=== PATIENT | male | born 1935 | race Caucasian/White ===

== ENCOUNTER 2019-12-30 12:58 | Inpatient (IN) | payer MEDICARE, BC ==
--- NOTE | 2019-12-30 13:52 | ED ---
Respiratory - HPI Summary HPI Summary: Patient is an 84 year-old male presenting to [facility] with a chief complaint of shortness of breath and productive cough lasting for about a week and a half. He reports that he was diagnosed with pneumonia a week ago with placement on 10 day course of Levaquin, which he is on the seventh day of taking. He was seen at his PCPs office today for shortness of breath and persistent cough with green sputum, where he was found to be slightly hypoxic at 88% on room air. Patient denies any fever, chills, erythema of eyes, sore throat, chest pain, abdominal pain, nausea, vomiting, dysuria, hematuria, myalgia, edema, rash, or dizziness. No recent travel history or known exposures. He is not on at-home O2. He is not currently in pain. Past medical history significant for diabetes, heart transplant, CHF, CAD, hypertension, hyperlipidemia, TIA, immunosuppressants. Nonsmoker, daily alcohol use, no substance use. Medications reviewed. Allergies noted. - History of Current Complaint Chief Complaint: EDUpperRespComplaint Stated Complaint: SOB/LOW OXYGEN PER PT Hx Obtained From: Patient Onset/Duration: Gradual Onset, Lasting Days, Still Present Timing: Constant Initial Severity: Mild Current Severity: Mild Pain Intensity: 0 Character: Cough (Productive) Sputum Color: Green Aggravating Factor(s): Nothing Alleviating Factor(s): Nothing - day 7 of Levaquin without relief Associated Signs and Symptoms: SOB, URI - Allergy/Home Medications Allergies/Adverse Reactions: Allergies Allergy/AdvReac Type Severity Reaction Status Date / Time heparin Allergy Unknown Verified 12/30/19 13:05 Reaction Details Iodinated Contrast Media Allergy Unknown Verified 12/30/19 13:05 Reaction Details zolpidem [From Ambien] Allergy Hallucinati Verified 12/30/19 13:05 ons Home Medications: Home Medications Atorvastatin* [Lipitor*] 5 mg PO MOWEFRSA 10/12/13 [History Confirmed 12/30/19] Calcium Citrate/Vitamin D3 [Citracal/Vitamin D] 2 tab PO BID 10/12/13 [History Confirmed 12/30/19] Magnesium Oxide TAB* [MagOx 400 TAB*] 800 mg PO BID 10/12/13 [History Confirmed 12/30/19] Multivitamins/Minerals TAB* [Thera M Plus TAB*] 1 tab PO DAILY 10/12/13 [ History Confirmed 12/30/19] Mycophenolate Mofetil CAP(*) [Cellcept CAP(*)] 500 mg PO BID 10/12/13 [History Confirmed 12/30/19] Tacrolimus CAP(*) [Prograf CAP(*)] 2 mg PO QAM 10/12/13 [History Confirmed 12/29] amLODIPine TAB* [Norvasc TAB*] 10 mg PO DAILY 10/12/13 [History Confirmed ] Dipyridamole/Aspirin 200/25* [Aggrenox 25/200*] 1 cap.er PO BID 01/26/14 [ History Confirmed 12/30/19] Insulin NPH Hum/Reg Insulin Hm [Novolin 70-30 Flexpen 3 ml x 5 Pens] 58 units SUBCUT DAILY 12/30/19 [History Confirmed 12/30/19] Levofloxacin TAB* [Levaquin TAB*] 500 mg PO DAILY 12/30/19 [History Confirmed ] Metoprolol Succinate XL TAB* [Toprol XL TAB*] 25 mg PO DAILY 12/30/19 [History Confirmed 12/30/19] Sertraline* [Zoloft*] 25 mg PO DAILY 12/30/19 [History Confirmed 12/30/19] Tacrolimus CAP(*) [Prograf CAP(*)] 1.5 mg PO QPM 12/30/19 [History Confirmed 10/08] PMH/Surg Hx/FS Hx/Imm Hx Endocrine/Hematology History: Reports: Hx Diabetes Cardiovascular History: Reports: Hx Congestive Heart Failure, Hx Coronary Artery Disease, Hx Hypercholesterolemia, Hx Hypertension, Other Cardiovascular Problems/Disorders - :Heart transplant Denies: Hx Pacemaker/ICD History: Denies: Hx Renal Disease Musculoskeletal History: Reports: Hx Arthritis Comment Only: Other Musculoskeletal History - Left knee needs replacement. Sensory History: Reports: Hx Contacts or Glasses Denies: Hx Hearing Aid Opthamlomology History: Reports: Hx Contacts or Glasses Neurological History: Reports: Hx Transient Ischemic Attacks (TIA), Other Neuro Impairments/Disorders - TIA-09/2013- STATES NO RESIDUAL Psychiatric History: Denies: Hx Panic Disorder - Surgical History Surgical History: Yes Surgery Procedure, Year, and Place: open heart surgery - heart transplant 2003 ( has had prev mri in 2011);. hernia 90's;. left knee 's;. gallbladder removed ; Hx Anesthesia Reactions: No Infectious Disease History: No Infectious Disease History: Denies: Traveled Outside the [place] in Last 30 Days - Family History Known Family History: Positive: Cardiac Disease - Social History Alcohol Use: Daily Alcohol Amount: 8 OUNCE [employer] W[employer] [place]ILE Hx Substance Use: No Substance Use Type: Reports: None Hx Tobacco Use: No Smoking Status (MU): Never Smoked Tobacco Amount Used/How Often: 1/2 PPD X 40 YEARS Review of Systems Negative: Fever, Chills Negative: Erythema Negative: Sore Throat Negative: Chest Pain Positive: Shortness Of Breath, Cough Negative: Abdominal Pain, Vomiting, Nausea Negative: dysuria, hematuria Negative: Myalgia, Edema Negative: Rash Neurological/Mental Status: Other - Negative: dizziness All Other Systems Reviewed And Are Negative: Yes Physical Exam - Summary Physical Exam Summary: Constitutional: Well-developed, Well-nourished, Alert. (-) Distressed Skin: Warm, Dry HENT: Normocephalic; Atraumatic Eyes: Conjunctiva normal Neck: Musculoskeletal ROM normal neck. (-) JVD, (-) Stridor, (-) Tracheal deviation Cardio: Rhythm regular, rate normal, Heart sounds normal; Intact distal pulses; The pedal pulses are 2+ and symmetric. Radial pulses are 2+ and symmetric. (-) Murmur Pulmonary/Chest wall: Effort normal. (-) Respiratory distress, (-) Wheezes, (-) Rales, (+) Rhonchi in the lower lung [place] Abd: Soft, (-) tenderness, (-) Distension, (-) Guarding, (-) Rebound Musculoskeletal: (-) Edema Lymph: (-) Cervical adenopathy Neuro: Alert, Oriented x3 Psych: Mood and affect Normal Triage Information Reviewed: Yes Vital Signs On Initial Exam: Initial Vitals Temp Pulse Resp BP Pulse Ox 98.7 F 113 20 180/100 88 12/30/19 13:01 12/30/19 13:01 12/30/19 13:01 12/30/19 13:01 12/30/19 13:01 Vital Signs Reviewed: Yes Procedures - Sedation Patient Received Moderate/Deep Sedation with Procedure: No Diagnostics - Vital Signs Vital Signs Temp Pulse Resp BP Pulse Ox 03/12/20 13:01 98.7 F 113 20 180/100 88 - Laboratory Result Diagrams: 12/30/19 14:26 12/30/19 14:26 Lab Statement: Any lab studies that have been ordered have been reviewed, and results considered in the medical decision making process. - Radiology CXR Radiology Interpretation Completed By: Radiologist Summary of Radiographic Findings: Impression: Persistent right upper lobe and right lower lobe pneumonia without significant change since December 23, 2019. ED physician has reviewed this report. - EKG 1435 Cardiac Rate: Tachycardia - 108 BPM EKG Rhythm: Sinus Tachycardia Summary of EKG Findings: An EKG at 1435 reveals sinus tachycardia at 108 BPM. No STEMI. ED physician has reviewed and interpreted this EKG. Re-Evaluation - Re-Evaluation First Eval Re-Evaluation Time: 14:30 Comment: Updated patient on test results Disposition - Course Course Of Treatment: Patient is an 84 year-old male presenting with persistent productive cough with green sputum and shortness of breath over the last week and half with diagnosed pneumonia last week despite treatment with course of Levaquin (seventh day out of ten). Patient found to be hypoxic at PCP's office today. Patient denies fevers, chills, chest pain, or myalgia. No recent travel history or known exposures. Past medical history significant for diabetes, heart transplant, CHF, CAD, hypertension, hyperlipidemia, TIA, immunosuppressants. Physical exam significant for rhonchi in the lower lung [place]. IV access obtained. Patient received fluids, Azithromycin, and Ceftriaxone. Blood work with abnormalities of absolute lymphocytes 0.8, INR 1.2 , BUN 44, creatinine 2.42, glucose 134, CRP 128.71. Influenza A and B are negative. EKG shows sinus tachycardia at 108 BPM, non-diagnostic for STEMI. Chest XR reveals right upper and lower lobe pneumonia with change from 2019. Patient has failed outpatient therapy with Levaquin. I discussed the patients case with Dr. Nix, who accepts the patient for admission. All results discussed with patient. Patient agreeable with admission plan. 35 MINUTES CRITICAL CARE TIME. - Diagnoses Provider Diagnoses: Sepsis, Community acquired pneumonia, Hypoxia - Physician Notifications Discussed Care Of Patient With: Deb Nix - hospitalist Time Discussed With Above Provider: 16:00 Instructed by Provider To: Other - I discussed the patients case with Dr. Nix , who will evaluate the patient for admission. She accepts the patient. - Critical Care Time Critical Care Time: 30-74 min - 35 minutes Discharge ED - Sign-Out/Discharge Documenting (check all that apply): Patient Departure - Patient accepted for admission by Dr. Nix. - Discharge Plan Condition: Stable Disposition: ADMITTED TO [facility] Referrals: Orestes Farrell MD [Primary Care Provider] - - Attestation Statements Document Initiated by Scribe: Yes Documenting Scribe: Sondra Power Provider For Whom Scribe is Documenting (Include Credential): John Apple MD Scribe Attestation: Sondra Germain, scribed for John Apple MD on 12/30/19 at 1701. Status of Scribe Document: Ready
[2019-12-30] MEDS ORDERED: Azithromycin 500 mg/250 ml NS 500 MG/250 ML BAG IVPB ONE (14:03)
[2019-12-30] MEDS ORDERED: cefTRIAXone(*) 1 GM in NS 0.9% 50 ML* 50 ML IVPB ONE (14:03)
[2019-12-30] MEDS ORDERED: NS 0.9% 1000 ML** 1,000 ML IV.FLUID IV ONE (14:03)
[2019-12-30 14:41] LABS: ABS Eosinophils 0.2 10^3/ul (0-0.6); ABS Lymphocytes 0.8 10^3/ul (1.0-4.8); ABS Monocytes 0.8 10^3/ul (0-0.8); ABS Neutrophils 6.6 10^3/ul (1.5-7.7); Eosinophil % 2.4 %; Hematocrit 45 % (42-52); Hemoglobin 14.9 g/dL (14.0-18.0); Lymphocyte % 9.2 %; Mean Corpuscular HGB Conc 33 g/dL (31-36); Mean Corpuscular Hemoglobin 27 pg (27-31); Mean Corpuscular Volume 83 fL (80-94); Mean Platelet Volume 7.2 fL (7.4-10.4); Nucleated Red Blood Cells % 0.1; Platelet Count 274 10^3/uL (150-450); Red Blood Count 5.45 10^6 /uL (4.18-5.48); Red Cell Distribution Width 15 % (10-15); White Blood Count 8.5 10^3/uL (3.5-10.8)
[2019-12-30 14:48] LABS: Activated Partial Thrombo Time 34.7 seconds (26.0-38.0); INR 1.2 (0.82-1.09)
[2019-12-30 15:00] LABS: Troponin I 0.01 ng/mL (<0.03)
[2019-12-30 15:05] LABS: Albumin 3.6 g/dL (3.2-5.2); Albumin/Globulin Ratio 1.2 (1-3); BUN/Creatinine Ratio 18.2 (8-20); Calcium 9.1 mg/dL (8.6-10.3); EGFR African American 31.2 (>60); EGFR Non-African American 25.8 (>60); Potassium 4.2 mmol/L (3.5-5.0); Total Bilirubin 0.4 mg/dL (0.2-1.0); Total Protein 6.6 g/dL (6.4-8.9)
[2019-12-30 15:41] LABS: Influenza A Molecular Negative (Negative); Influenza B Molecular Negative (Negative)
[2019-12-30] MEDS ORDERED: Vancomycin(*) 1,000 MG in NS 0.9% 250 ML* 250 ML IVPB ONE (16:04)
[2019-12-30] MEDS ORDERED: Vancomycin per Pharmacy* NOTE FOLLOW UP PRN (16:12)
[2019-12-30 16:21] LABS: C Reactive Protein 128.71 mg/L (<8.01)
[2019-12-30] MEDS ORDERED: Dextrose 50% Syringe 50 ML* 25 GM/50 ML SYRINGE IV PUSH PRN (16:21)
[2019-12-30] MEDS ORDERED: Vancomycin per Pharmacy* NOTE FOLLOW UP SCH (17:00)
[2019-12-30] MEDS ORDERED: Vancomycin(*) 1,250 MG IV x ONCE IVPB ONE ×2 (17:00)
--- NOTE | 2019-12-30 19:45 | HP ---
CC: Dr. Farrell; Dr. Hunt; Dr. Khanna; Dr. Maher; Dr. uMkherjee * HISTORY AND PHYSICAL: DATE OF ADMISSION: 12/30/19 PRIMARY CARE PROVIDER: Dr. Farrell. STOCKKEEPER: Dr. Hunt. CHIEF COMPLAINT: Shortness of breath and cough. HISTORY OF PRESENT ILLNESS: Hany Webb is an 84-year-old male with history of cardiac transplant in 2004, who was diagnosed as an outpatient with pneumonia approximately a week ago. He was started on Levaquin and he is on his fourth dose of Levaquin. Today, he went into his primary care provider for followup. He was noted to be coughing up phlegm with blood-tinged. He was severely dyspneic. He was sent by his primary care provider to be evaluated in the ED. Here, he was satting 88% on room air. He is at a degree of respiratory distress. He was placed on Vapotherm in the emergency department and he is going to be admitted to the ICU for acute hypoxemic respiratory failure due to pneumonia. His chest x-ray shows pneumonia that is basically unchanged from a week ago. He is also going to be placed on broad-spectrum antibiotics. PAST MEDICAL HISTORY: Complicated. 1. 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 He also developed iliofemoral DVT, which required IVC filter. He was put on LVAD. Subsequently, he underwent cardiac transplantation in 2004. 2. The patient also history of diabetes that is insulin-dependent. 3. Chronic kidney disease, stage 3, due to diabetes. 4. Hypertension. 5. Dyslipidemia. 6. History of bilateral carotid endarterectomies. 7. Knee arthroplasty in 2013. 8. His last echocardiogram documented in 2012, EF of 60% to 65%. 9. An episode of TIA in 2012 with expressive aphasia that resolved. 10. 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 Those were diagnosed in 2012 and they are surveilled at [facility] without any aggressive management so far. 11. 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 MEDICATIONS AT HOME: Include: 1. Magnesium oxide 800 mg b.i.d. 2. Multivitamin 1 tablet daily. 3. Insulin NovoLog 58 units daily. 4. Calcium citrate 2 tablets b.i.d. 5. Toprol-XL 25 mg daily. 6. Zoloft 25 mg daily. 7. Amlodipine 10 mg daily. 8. Aggrenox 1 capsule b.i.d. 9. Prograf 1.5 mg q.p.m. 10. Atorvastatin 5 mg Mondays, Wednesdays, Fridays, and Saturdays. 11. Prograf 2 mg q.a.m. 12. CellCept 500 mg b.i.d. The patient also had been on levofloxacin 500 mg daily. 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 IODINE is also listed as allergy, but it is because of his renal function. With ZOLPIDEM, the patient experienced hallucinations. FAMILY HISTORY: Father in World War II at the age of 46. Mother at the age of 86 secondary to old age. SOCIAL HISTORY: The patient is originally [place]. He immigrated here many years ago. 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 Lives with his , who is his surrogate. The patient is a full code. He has a history of smoking for 50 years, half a pack per day, quit smoking in 1993. He denies any drug use. He is fully ambulatory at baseline. REVIEW OF SYSTEMS: Please see history of present illness. In addition to the above mentioned, the patient has chronic mild left arm weakness, but he is otherwise independent with his activities of daily living. All the remaining 12 systems were reviewed with the patient and were otherwise negative. PHYSICAL EXAMINATION GENERAL: The patient is a pleasant 84-year-old male, who is in no acute distress. The patient is alert and oriented x3. VITAL SIGNS: Blood pressure of 161/92, heart rate of 110 and regular, respiratory rate 33, oxygen saturation 94% on Vapotherm at 40 L of FiO2, temperature of 98.7. HEENT: Head: Atraumatic, normocephalic. Eyes: Pupils are equal, reactive to light and accommodation. Oropharynx is clear. Mucosa moist. NECK: Supple. No JVD. No bruits bilaterally. RESPIRATORY: Crackles at bilateral bases with right mid lung rhonchi. CARDIOVASCULAR: Regular rate and rhythm. No murmur. ABDOMEN: Soft, nontender. Bowel sounds are present in all 4 quadrants. There is subcutaneous density palpable in the right mid abdomen that as per the patient's is related to the patient's left ventricular assist device implanted there many years ago that was explanted in the past and caused subcutaneous scarring. EXTREMITIES: There is no edema. Pulses are +2 bilaterally. No clubbing or cyanosis. NEUROLOGIC: Speech is clear. Cranial nerves II through XII grossly intact. Motor strength is 5/5 in bilateral lower extremities, 4+/5 in left arm proximally, 5/5 in bilateral handgrip, and 5/5 in the right upper extremity. PSYCHIATRIC: Pleasant, cooperative with evaluation, with no evidence of anxiety or depression. DIAGNOSTIC STUDIES/LAB DATA: White blood cell count of 8.5, hemoglobin 14.9, hematocrit 45, and platelets 274. Sodium 139, potassium 4.2, chloride 103, carbon dioxide 27, BUN 44, creatinine 2.4. Liver function tests unremarkable. Troponin of 0.01. C-reactive protein of 128. INR was 1.2. Influenza testing was unremarkable and negative. Portable chest x-ray, impression: "Persistent right upper lobe and right lower lobe pneumonia without significant changes since 12/23/19." The patient's EKG showed sinus tachycardia with known right bundle-branch block , left posterior hemiblock, and prolonged QRS duration. ASSESSMENT AND PLAN: 1. The patient has severe sepsis due to pneumonia with acute hypoxemic respiratory failure requiring Vapotherm. I curbsided our infectious disease specialist, who recommended vancomycin and cefepime treatment. The patient is going to have sputum cultures, blood cultures obtained as well as urine legionella and Strep pneumo antigen. He is going to be placed on call worker person service and that was already discussed with the call worker person. 2. In regards to the patient's history of cardiac transplant, so far there are no major cardiac issues noted. The patient is tachycardic, but it is appropriate. His last EF was noted in 2012 and was 65%. I will obtain chest CT to evaluate further his abnormalities on the chest and evaluate for possibility of pericardial effusion. 3. The patient's chronic kidney disease, stage 3, is at baseline. 4. For the patient's diabetes, due the patient's limited diet while on Vapotherm and clear liquids, the patient is going to be on insulin sliding scale and his NPH is going to be held. 5. In regards to the patient's history of heart transplant, the patient's CellCept and Prograf are going to be continued. 6. For DVT prophylaxis, due to the patient's creatinine clearance below 30, the patient cannot be on fondaparinux. Argatroban is not recommended for DVT prophylaxis in patients with history of heparin-induced thrombocytopenia. At this point, I curbsided our job training supervisor, who recommended sequential compression devices only. 7. For code status that was discussed with the patient's . who is his surrogate. The patient and the patient's both agreed that the patient should be a full code. TIME SPENT: Approximately 75 minutes was spent on admission of this patient, more than half that time was spent [id number] with the patient during the interview and physical exam. [id number]/[facility] #: [id number] YAZ
[2019-12-30] MEDS: Cefepime 1 GM in Dextrose(*) 1 GM/50 ML q12h (Duplex) IV SCH (20:29)
[2019-12-30] MEDS: NS 0.9% 1000 ML** 1,000 ML IV SCH (20:56)
[2019-12-30] MEDS: Insulin LISPRO* 1 UNITS UNIT SUBCUT SCH ×2 (21:18→21:54)
[2019-12-30] MEDS: Magnesium Oxide TAB* 400 MG PO SCH (21:30)
[2019-12-30] MEDS: ASPIRIN PO SCH (21:31)
[2019-12-30] MEDS: Mycophenolate Mofetil TAB(*) 500 MG PO SCH (21:31)
[2019-12-30] MEDS: DIPYRIDAMOLE PO SCH (21:31)
[2019-12-30] MEDS: Tacrolimus CAP(*) 1 MG PO SCH (21:42)
[2019-12-30] MEDS: Tacrolimus CAP(*) 0.5 MG PO SCH (21:46)
[2019-12-31 01:59] LABS: Urine Appearance Clear; Urine Color Yellow
[2019-12-31 02:00] LABS: Urine Ketones Negative (Negative); Urine Protein 2+(100 mg/dL) (Negative); Urine Urobilinogen Negative (Negative)
[2019-12-31 02:01] LABS: Urine Bilirubin Negative (Negative); Urine Blood Negative (Negative); Urine Glucose Negative (Negative); Urine Nitrite Negative (Negative)
[2019-12-31] MEDS: Cefepime 1 GM in Dextrose(*) 1 GM/50 ML q12h (Duplex) IV SCH ×2 (05:38→18:45)
[2019-12-31 06:02] LABS: EGFR African American 38.2 (>60); EGFR Non-African American 31.6 (>60)
[2019-12-31] MEDS: NS 0.9% 1000 ML** 1,000 ML IV SCH (06:47)
[2019-12-31] MEDS: Insulin LISPRO* 1 UNITS UNIT SUBCUT SCH ×4 (07:55→22:02)
[2019-12-31] MEDS: ASPIRIN PO SCH ×2 (08:46→20:34)
[2019-12-31] MEDS: Mycophenolate Mofetil TAB(*) 500 MG PO SCH ×2 (08:46→20:33)
[2019-12-31] MEDS: DIPYRIDAMOLE PO SCH ×2 (08:46→20:34)
[2019-12-31] MEDS: Metoprolol Succinate XL TAB* 25 MG PO SCH (08:46)
[2019-12-31] MEDS: Magnesium Oxide TAB* 400 MG PO SCH ×2 (08:46→20:34)
[2019-12-31] MEDS: Sertraline* 25 MG TAB PO SCH (08:46)
[2019-12-31] MEDS: Tacrolimus CAP(*) 1 MG PO SCH (08:46)
[2019-12-31] MEDS: amLODIPine TAB* 5 MG PO SCH (08:46)
--- NOTE | 2019-12-31 11:26 | PN ---
Date of Service: 12/31/19 Critical Care Services: Patient seen and examined. No complaints of SOB, but still remains with increased WOB. Denies fever or chills, no chest pain, no n/v, no headache. at bedside and updated on POC. Vital Signs: Temp Pulse Resp BP SpO2 FiO2 99.3 F 121 16 140/122 85 50 12/31/19 08:00 12/31/19 11:00 12/31/19 11:00 12/31/19 11:00 12/31/19 11:00 12/30 08:00 Physical Exam: General: Alert, NAD HEENT: Normocephalic, atraumatic, non-icteric sclera, moist oral mucosa Neck: soft, supple, no JVD CV: tachycardic, regular rhythm, no murmurs or rubs Pulm/Chest: some mild rhonchi, no rales or wheeze, good air entry noted Abdomen/GI: soft, nontender, nondistended, +BS noted MSK/Skin: warm, dry, intact, +2 pulses+, no edema or cyanosis Neuro: A&Ox3, no gross focal deficits, full ROM Psych: Appropriate affect and mood Fluid Balance (Past 24 Hours): Intake & Output 12/29/19 12/30/19 12/31/19 01/01/20 06:59 06:59 06:59 06:59 Intake Total 3348 0 Output Total 710 550 Balance 2638 -550 Weight 184 lb 4.903 oz Intake: IV Fluids 3326 NS 896 IVPB 22 Abx 22 Oral 0 Output: Urine 210 100 Straight Cath 500 450 Labs: Laboratory Results - last 24 hr 12/30/19 12/30/19 12/30/19 14:26 14:26 14:26 WBC 8.5 RBC 5.45 Hgb 14.9 Hct 45 MCV 83 MCH 27 MCHC 33 RDW 15 Plt Count 274 MPV 7.2 L Neut % (Auto) 78.3 Lymph % (Auto) 9.2 [place] % (Auto) 9.6 Eos % (Auto) 2.4 Baso % (Auto) 0.5 Absolute Neuts (auto) 6.6 Absolute Lymphs (auto) 0.8 L Absolute Monos (auto) 0.8 Absolute Eos (auto) 0.2 Absolute Basos (auto) 0.0 Absolute Nucleated RBC 0.0 Nucleated RBC % 0.1 INR (Anticoag Therapy) 1.20 H APTT 34.7 Sodium 139 Potassium 4.2 Chloride 103 Carbon Dioxide 27 Anion Gap 9 BUN 44 H Creatinine 2.42 H Est GFR ( Amer) 31.2 Est GFR (Non-Af Amer) 25.8 BUN/Creatinine Ratio 18.2 Glucose 134 H POC Glucose (mg/dL) Lactic Acid Calcium 9.1 Total Bilirubin 0.40 AST 18 ALT 12 Alkaline Phosphatase 44 Troponin I 0.01 C-Reactive Protein 128.71 H Total Protein 6.6 Albumin 3.6 Globulin 3.0 Albumin/Globulin Ratio 1.2 Urine Color Urine Appearance Urine pH Ur Specific [place] Urine Protein Urine Ketones Urine Blood Urine Nitrate Urine Bilirubin Urine Urobilinogen Ur Leukocyte Esterase Urine Glucose Influenza A (Rapid) Influenza B (Rapid) 12/30/19 12/30/19 12/30/19 14:26 15:04 18:14 WBC RBC Hgb Hct MCV MCH MCHC RDW Plt Count MPV Neut % (Auto) Lymph % (Auto) [place] % (Auto) Eos % (Auto) Baso % (Auto) Absolute Neuts (auto) Absolute Lymphs (auto) Absolute Monos (auto) Absolute Eos (auto) Absolute Basos (auto) Absolute Nucleated RBC Nucleated RBC % INR (Anticoag Therapy) APTT Sodium Potassium Chloride Carbon Dioxide Anion Gap BUN Creatinine Est GFR ( Amer) Est GFR (Non-Af Amer) BUN/Creatinine Ratio Glucose POC Glucose (mg/dL) Lactic Acid 0.8 0.5 Calcium Total Bilirubin AST ALT Alkaline Phosphatase Troponin I C-Reactive Protein Total Protein Albumin Globulin Albumin/Globulin Ratio Urine Color Urine Appearance Urine pH Ur Specific [place] Urine Protein Urine Ketones Urine Blood Urine Nitrate Urine Bilirubin Urine Urobilinogen Ur Leukocyte Esterase Urine Glucose Influenza A (Rapid) Negative Influenza B (Rapid) Negative 12/30/19 12/30/19 12/30/19 18:34 20:17 21:08 WBC RBC Hgb Hct MCV MCH MCHC RDW Plt Count MPV Neut % (Auto) Lymph % (Auto) [place] % (Auto) Eos % (Auto) Baso % (Auto) Absolute Neuts (auto) Absolute Lymphs (auto) Absolute Monos (auto) Absolute Eos (auto) Absolute Basos (auto) Absolute Nucleated RBC Nucleated RBC % INR (Anticoag Therapy) APTT Sodium Potassium Chloride Carbon Dioxide Anion Gap BUN Creatinine Est GFR ( Amer) Est GFR (Non-Af Amer) BUN/Creatinine Ratio Glucose POC Glucose (mg/dL) 123 H 172 H 169 H Lactic Acid Calcium Total Bilirubin AST ALT Alkaline Phosphatase Troponin I C-Reactive Protein Total Protein Albumin Globulin Albumin/Globulin Ratio Urine Color Urine Appearance Urine pH Ur Specific [place] Urine Protein Urine Ketones Urine Blood Urine Nitrate Urine Bilirubin Urine Urobilinogen Ur Leukocyte Esterase Urine Glucose Influenza A (Rapid) Influenza B (Rapid) 12/31/19 12/31/19 12/31/19 01:50 05:30 07:52 WBC RBC Hgb Hct MCV MCH MCHC RDW Plt Count MPV Neut % (Auto) Lymph % (Auto) [place] % (Auto) Eos % (Auto) Baso % (Auto) Absolute Neuts (auto) Absolute Lymphs (auto) Absolute Monos (auto) Absolute Eos (auto) Absolute Basos (auto) Absolute Nucleated RBC Nucleated RBC % INR (Anticoag Therapy) APTT Sodium Potassium Chloride Carbon Dioxide Anion Gap BUN 35 H Creatinine 2.03 H Est GFR ( Amer) 38.2 Est GFR (Non-Af Amer) 31.6 BUN/Creatinine Ratio Glucose POC Glucose (mg/dL) 111 H Lactic Acid Calcium Total Bilirubin AST ALT Alkaline Phosphatase Troponin I C-Reactive Protein Total Protein Albumin Globulin Albumin/Globulin Ratio Urine Color Yellow Urine Appearance Clear Urine pH 6 Ur Specific [place] 1.010 Urine Protein 2+(100 mg/dl) A Urine Ketones Negative Urine Blood Negative Urine Nitrate Negative Urine Bilirubin Negative Urine Urobilinogen Negative Ur Leukocyte Esterase Negative Urine Glucose Negative Influenza A (Rapid) Influenza B (Rapid) Studies: Patient Name: PABLO MACIAS Medical Record#: [id number] Ordering Physician: Sole Renteria NP Acct.#: [id number] : 1935 Age: 84 Sex: M Location: EMERGENCY DEPARTMENT Exam Date: 12/30/191657 ADM Status: REG ER Order Information: CT CHEST W/O Accession Number: [id number] CPT: 40771 Indication: Respiratory failure. CT of the chest performed without IV contrast. Coronal and sagittal reconstructed images were obtained. Inferior thyroid lobes are unremarkable. Small 3 to 5 mm pretracheal lymph nodes are noted. The heart demonstrates no pericardial effusion. In the right lower lobe there is dense consolidation with air bronchograms consistent with right lower lobe pneumonia. This makes in the right middle lobe. No definite pleural fluid is identified. Left basilar atelectasis is noted. IMPRESSION: Right lower lobe consolidation consistent with right lower lobe pneumonia. Chronic interstitial changes are noted. Nutrition: Heart healthy, CC Impression: This is an 84 year old male with history of heart transplant, DMII, and renal disease that presented to the ED after seeing his PCP for a follow up visit while being treated as an outpatient for community acquired pneumonia, then found to be hypoxic and in respiratory distress. Diagnoses: 1. Acute Hypoxic Respiratory Failure 2/2 CAP/failed outpatient treatment 2. Sever Sepsis, / #1 3. History of Heart Transplant, on immunosupression 4. CKD, st3 5. IDDM 6. Hx of RONAL Plan: Neuro - Mentating appropriately, no active issues CV - EKG with no acute changes, no active issues - Tachycardia noted on tele 2/ hypoxia - CT chest with no pericardial effusion - Continue Prograf and CellCept Pulm - Continue vapotherm and wean Fio2 to keep sat>92% - No wheezing noted, no indication for nebs - CT chest with right LL PNA with air bronchograms - Vanc/cefepime as per ID ID - Received sepsis bolus in ED, although BP was stable and lactic acid was 0.8 and 0.5 with no fever - Will continue cefepime and vancomycin, follow troughs - Continue CellCept and Prograf at current doses - Afebrile - Follow blood and sputum cultures, currently NTD GI - Continue Heart healthy, consistent carb diet no caffeine Renal - strict I/O, replete to keep K>4, Mg>2 - Retained urine x2, with straight cath needed. Continue to assess needs going forward, avoid anaya if possible Heme - SCDs only for DVT prophy given hx of RONAL Endo - Maintain BG<200, insulin protocol with lispro SS Musculsk - OOB to chair Wounds- none Nutrition- HH/CC no caffeine DVT prophylaxis: SCDs GI prophylaxis: None required Anaya Cathetor: Straight cath PRN Disposition: Patient requires Critical Care/ICU for Respiratory failure management with vapotherm Patient clinical status: Fair/guarded Code Status: Full code Total Critical Care time is 40 minutes
[2019-12-31] MEDS: Vancomycin(*) 750 MG in NS 0.9% 250 ML* 250 ML IVPB SCH (13:13)
[2019-12-31] MEDS: Atorvastatin* 10 MG TAB PO SCH (17:51)
[2019-12-31] MEDS: Tacrolimus CAP(*) 0.5 MG PO SCH (17:52)
[2020-01-01 06:11] LABS: ABS Eosinophils 0.1 10^3/ul (0-0.6); ABS Lymphocytes 0.7 10^3/ul (1.0-4.8); ABS Monocytes 0.8 10^3/ul (0-0.8); ABS Neutrophils 8.2 10^3/ul (1.5-7.7); Eosinophil % 0.7 %; Hematocrit 40 % (42-52); Hemoglobin 13.6 g/dL (14.0-18.0); Lymphocyte % 7.2 %; Mean Corpuscular HGB Conc 34 g/dL (31-36); Mean Corpuscular Hemoglobin 28 pg (27-31); Mean Corpuscular Volume 83 fL (80-94); Mean Platelet Volume 7.2 fL (7.4-10.4); Platelet Count 220 10^3/uL (150-450); Red Blood Count 4.84 10^6 /uL (4.18-5.48); Red Cell Distribution Width 15 % (10-15); White Blood Count 9.8 10^3/uL (3.5-10.8)
[2020-01-01 06:18] LABS: BUN/Creatinine Ratio 16.9 (8-20); Calcium 7.5 mg/dL (8.6-10.3); EGFR African American 40.1 (>60); EGFR Non-African American 33.1 (>60); Potassium 3.9 mmol/L (3.5-5.0)
[2020-01-01] MEDS: Cefepime 1 GM in Dextrose(*) 1 GM/50 ML q12h (Duplex) IV SCH ×2 (06:29→18:02)
[2020-01-01] MEDS: amLODIPine TAB* 5 MG PO SCH (09:17)
[2020-01-01] MEDS: Tacrolimus CAP(*) 1 MG PO SCH (09:17)
[2020-01-01] MEDS: DIPYRIDAMOLE PO SCH ×2 (09:18→20:27)
[2020-01-01] MEDS: ASPIRIN PO SCH ×2 (09:18→20:27)
[2020-01-01] MEDS: Metoprolol Succinate XL TAB* 25 MG PO SCH (09:18)
[2020-01-01] MEDS: Magnesium Oxide TAB* 400 MG PO SCH ×2 (09:18→20:27)
[2020-01-01] MEDS: Sertraline* 25 MG TAB PO SCH (09:18)
[2020-01-01] MEDS: Mycophenolate Mofetil TAB(*) 500 MG PO SCH ×2 (09:18→20:27)
[2020-01-01] MEDS: Insulin LISPRO* 1 UNITS UNIT SUBCUT SCH ×4 (09:19→20:38)
[2020-01-01 11:52] LABS: Urine Appearance Clear; Urine Bilirubin Negative (Negative); Urine Blood 1+ (Negative); Urine Color Yellow; Urine Glucose 1+(50 mg/dL) (Negative); Urine Ketones Negative (Negative); Urine Nitrite Negative (Negative); Urine Protein 2+(100 mg/dL) (Negative); Urine Specific Gravity 1.012 (1.010-1.030); Urine Urobilinogen Negative (Negative)
[2020-01-01 12:06] LABS: Urine Bacteria Absent (Absent); Urine Red Blood Cell 1+(3-5/hpf) (Absent); Urine Squamous Epithelial Cell Present (Absent); Urine White Blood Cell Trace(0-5/hpf) (Absent)
[2020-01-01] MEDS: Sulfamethox/Trimethoprim SS 400/80* TAB PO SCH ×2 (12:50→20:27)
[2020-01-01] MEDS: Vancomycin(*) 750 MG in NS 0.9% 250 ML* 250 ML IVPB SCH (12:51)
[2020-01-01] MEDS: Atorvastatin* 10 MG TAB PO SCH (16:57)
[2020-01-01] MEDS: Tacrolimus CAP(*) 0.5 MG PO SCH (16:58)
--- NOTE | 2020-01-01 20:09 | PN ---
Date of Service: 01/01/20 Critical Care Services: Patient seen and examined. Feels better sitting up in chair and OOB. Remains on vapotherm, not able to wean. Repeat CXR with interval worsening of right sided pneumonia. Mild increase in temperature as well. Denies chest pain, no chills. updated on POC. Vital Signs: Temp Pulse Resp BP SpO2 FiO2 99.9 F 108 28 119/105 98 55 01/01/20 19:45 01/01/20 19:45 01/01/20 19:53 01/01/20 19:00 01/01/20 19:45 12/31 19:48 Physical Exam: General: Alert, NAD HEENT: Normocephalic, atraumatic, non-icteric sclera, moist oral mucosa Neck: soft, supple, no JVD CV: tachycardic, regular rhythm, no murmurs or rubs Pulm/Chest: some mild rhonchi, no rales or wheeze, good air entry noted Abdomen/GI: soft, nontender, nondistended, +BS noted MSK/Skin: warm, dry, intact, +2 pulses+, no edema or cyanosis Neuro: A&Ox3, no gross focal deficits, full ROM Psych: Appropriate affect and mood Fluid Balance (Past 24 Hours): I= O= Net Intake & Output 12/30/19 12/31/19 01/01/20 01/02/20 06:59 06:59 06:59 06:59 Intake Total 3348 1665 510 Output Total 710 1800 595 Balance 2638 -135 -85 Weight 184 lb 4.903 oz 182 lb 1.629 oz Intake: IV Fluids 3326 1037 Abx 258 NS 896 779 IVPB 22 138 Abx 22 138 Oral 490 510 Output: Urine 210 1350 150 Anaya 320 Straight Cath 500 450 Residual 125 Anaya Temperature Probe 125 Other: Estimated Void Small Date of Last Bowel 12/31/2019 01/01/2020 Movement # Bowel Movements 1 1 Estimated Stool Amount Small Medium # Voids 1 1 Labs: Laboratory Results - last 24 hr 12/31/19 01/01/20 01/01/20 21:56 05:55 05:55 WBC 9.8 RBC 4.84 Hgb 13.6 L Hct 40 L MCV 83 MCH 28 MCHC 34 RDW 15 Plt Count 220 MPV 7.2 L Neut % (Auto) 83.5 Lymph % (Auto) 7.2 [place] % (Auto) 8.3 Eos % (Auto) 0.7 Baso % (Auto) 0.3 Absolute Neuts (auto) 8.2 H Absolute Lymphs (auto) 0.7 L Absolute Monos (auto) 0.8 Absolute Eos (auto) 0.1 Absolute Basos (auto) 0.0 Absolute Nucleated RBC 0.0 Nucleated RBC % 0.0 Sodium 140 Potassium 3.9 Chloride 110 Carbon Dioxide 22 Anion Gap 8 BUN 33 H Creatinine 1.95 H Est GFR ( Amer) 40.1 Est GFR (Non-Af Amer) 33.1 BUN/Creatinine Ratio 16.9 Glucose 140 H POC Glucose (mg/dL) 157 H Calcium 7.5 L Magnesium 2.0 Urine Color Urine Appearance Urine pH Ur Specific [place] Urine Protein Urine Ketones Urine Blood Urine Nitrate Urine Bilirubin Urine Urobilinogen Ur Leukocyte Esterase Urine WBC (Auto) Urine RBC (Auto) Ur Squamous Epith Cells Urine Bacteria Urine Glucose 01/01/20 11:16 WBC RBC Hgb Hct MCV MCH MCHC RDW Plt Count MPV Neut % (Auto) Lymph % (Auto) [place] % (Auto) Eos % (Auto) Baso % (Auto) Absolute Neuts (auto) Absolute Lymphs (auto) Absolute Monos (auto) Absolute Eos (auto) Absolute Basos (auto) Absolute Nucleated RBC Nucleated RBC % Sodium Potassium Chloride Carbon Dioxide Anion Gap BUN Creatinine Est GFR ( Amer) Est GFR (Non-Af Amer) BUN/Creatinine Ratio Glucose POC Glucose (mg/dL) Calcium Magnesium Urine Color Yellow Urine Appearance Clear Urine pH 6.0 Ur Specific [place] 1.012 Urine Protein 2+(100 mg/dl) A Urine Ketones Negative Urine Blood 1+ A Urine Nitrate Negative Urine Bilirubin Negative Urine Urobilinogen Negative Ur Leukocyte Esterase Negative Urine WBC (Auto) Trace(0-5/hpf) Urine RBC (Auto) 1+(3-5/hpf) A Ur Squamous Epith Cells Present A Urine Bacteria Absent Urine Glucose 1+(50 mg/dl) A Studies: Patient Name: PABLO MACIAS Medical Record#: [id number] Ordering Physician: Devon Mukherjee MD Acct.#: [id number] : 1935 Age: 84 Sex: M Location: INTENSIVE CARE UNIT Exam Date: 01/01/20 0907 ADM Status: ADM IN Order Information: CHEST AP/PORT Accession Number: [id number] CPT: 26388 INDICATION: Follow-up pneumonia COMPARISON: Most recent comparison chest x-ray is dated December 30, 2019 TECHNIQUE: Single AP portable view of the chest was obtained. FINDINGS: Image quality is compromised due to the relative inferiority of a portable chest x-ray. The heart and mediastinum exhibit normal size and contour. There is increased density obscuring the right middle and lower lung and density obscuring the left lung base. The degree of aeration is worse when compared to the December 30, 2019 chest x-ray and much worse when compared to the December 23, 2019 chest x-ray. Visualized bones are normal for the patient's age. IMPRESSION: Interval worsening in aeration relative to the 12/30/2019 and 2019 chest x-rays indicating worsening pneumonia and/or enlarging pleural effusions. Patient Name: PABLO MACIAS Medical Record#: [id number] Ordering Physician: Sole Renteria NP Acct.#: [id number] : 1935 Age: 84 Sex: M Location: EMERGENCY DEPARTMENT Exam Date: 12/30/19 1658 ADM Status: REG ER Order Information: CT CHEST W/O Accession Number: [id number] CPT: 21484 Indication: Respiratory failure. CT of the chest performed without IV contrast. Coronal and sagittal reconstructed images were obtained. Inferior thyroid lobes are unremarkable. Small 3 to 5 mm pretracheal lymph nodes are noted. The heart demonstrates no pericardial effusion. In the right lower lobe there is dense consolidation with air bronchograms consistent with right lower lobe pneumonia. This makes in the right middle lobe. No definite pleural fluid is identified. Left basilar atelectasis is noted. IMPRESSION: Right lower lobe consolidation consistent with right lower lobe pneumonia. Chronic interstitial changes are noted. Nutrition: Heart healthy, consistent carb Impression: This is an 84 year old male with history of heart transplant, DMII, and renal disease that presented to the ED after seeing his PCP for a follow up visit while being treated as an outpatient for community acquired pneumonia, then found to be hypoxic and in respiratory distress. Diagnoses: 1. Acute Hypoxic Respiratory Failure 2/2 CAP/failed outpatient treatment 2. Sever Sepsis, 2/2 #1 3. History of Heart Transplant, on immunosupression 4. CKD, st3 5. 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 Plan: Neuro - Mentating appropriately, no active issues CV - EKG with no acute changes, no active issues - Tachycardia noted on tele 11/21 hypoxia - [address] chest with no pericardial effusion - Continue Prograf and CellCept Pulm - Continue vapotherm and wean Fio2 to keep sat>92% - No wheezing noted, no indication for nebs - Pulmonary toilet with flutter valve - CT chest with right LL PNA with air bronchograms, worsening PNA on right n today's CXR as above ID - Received sepsis bolus in ED, although BP was stable and lactic acid was 0.8 and 0.5 with no fever - Vanc/cefepime as per ID, will add bactrim today renally dosed given immunosupression and obtain sputum for fungal smear, concern for PCP PNA - Continue CellCept and Prograf at current doses - Afebrile - Follow blood and sputum cultures, currently NTD; follow repeat fungal sputum submitted today as well as viral PCR GI - Continue Heart healthy, consistent carb diet no caffeine Renal - strict I/O, replete to keep K>4, Mg>2 - Retained urine persistently, anaya inserted today to decompress bladder Heme - SCDs only for DVT prophy given hx of HIT Endo - Maintain BG<200, insulin protocol with lispro SS Musculsk - OOB to chair Wounds- none Nutrition- HH/CC no caffeine DVT prophylaxis: SCDs only GI prophylaxis: None required Anaya Catheter: Continue Disposition: Patient requires Critical Care/ICU for Respiratory failure management with vapotherm Patient clinical status: Fair/guarded Code Status: Full code Total Critical Care time is 40 minutes
[2020-01-02] MEDS: Cefepime 1 GM in Dextrose(*) 1 GM/50 ML q12h (Duplex) IV SCH ×2 (06:11→17:49)
[2020-01-02 06:44] LABS: ABS Lymphocytes 0.4 10^3/ul (1.0-4.8); ABS Monocytes 0.7 10^3/ul (0-0.8); ABS Neutrophils 8.3 10^3/ul (1.5-7.7); Eosinophil % 0.4 %; Hematocrit 39 % (42-52); Lymphocyte % 4.2 %; Mean Corpuscular HGB Conc 34 g/dL (31-36); Mean Corpuscular Hemoglobin 28 pg (27-31); Mean Corpuscular Volume 82 fL (80-94); Mean Platelet Volume 7.3 fL (7.4-10.4); Platelet Count 214 10^3/uL (150-450); Red Blood Count 4.71 10^6 /uL (4.18-5.48); Red Cell Distribution Width 15 % (10-15); White Blood Count 9.5 10^3/uL (3.5-10.8)
[2020-01-02 06:58] LABS: Albumin/Globulin Ratio 1.2 (1-3); BUN/Creatinine Ratio 17.7 (8-20); Calcium 7.5 mg/dL (8.6-10.3); EGFR African American 38.2 (>60); EGFR Non-African American 31.6 (>60); Globulin 2.6 g/dL (2-4); Total Bilirubin 0.4 mg/dL (0.2-1.0); Total Protein 5.6 g/dL (6.4-8.9)
[2020-01-02] MEDS: Mycophenolate Mofetil TAB(*) 500 MG PO SCH ×2 (07:35→20:27)
[2020-01-02] MEDS: Insulin LISPRO* 1 UNITS UNIT SUBCUT SCH ×4 (07:35→20:26)
[2020-01-02] MEDS: amLODIPine TAB* 5 MG PO SCH (07:36)
[2020-01-02] MEDS: Sertraline* 25 MG TAB PO SCH (07:36)
[2020-01-02] MEDS: Tacrolimus CAP(*) 1 MG PO SCH (07:36)
[2020-01-02] MEDS: Metoprolol Succinate XL TAB* 25 MG PO SCH (07:36)
[2020-01-02] MEDS: Magnesium Oxide TAB* 400 MG PO SCH ×2 (07:36→20:26)
[2020-01-02] MEDS: DIPYRIDAMOLE PO SCH ×2 (07:36→20:26)
[2020-01-02] MEDS: Sulfamethox/Trimethoprim SS 400/80* TAB PO SCH ×2 (07:36→20:26)
[2020-01-02] MEDS: ASPIRIN PO SCH ×2 (07:36→20:26)
[2020-01-02] MEDS ORDERED: Vancomycin Trough Check NOTE FOLLOW UP ONE (11:30)
[2020-01-02] MEDS: Vancomycin(*) 750 MG in NS 0.9% 250 ML* 250 ML IVPB SCH (12:03)
[2020-01-02] MEDS: Tacrolimus CAP(*) 0.5 MG PO SCH (17:56)
--- NOTE | 2020-01-02 19:06 | PN ---
Date of Service: 01/02/20 Critical Care Services: Patient seen and examined. Feeling improved today. Color is improved. Feels his breathing is better. Enjoys sitting up in the chair. No fevers overnight. Tolerating the vapotherm with weaning today. No chest pain, no SOB. Vital Signs: Temp Pulse Resp BP SpO2 FiO2 99.7 F 121 15 170/97 91 50 01/02/20 18:00 01/02/20 18:00 01/02/20 18:00 01/02/20 18:00 01/02/20 18:00 01/01 18:14 Physical Exam: General: Alert, NAD HEENT: Normocephalic, atraumatic, non-icteric sclera, moist oral mucosa Neck: soft, supple, no JVD CV: tachycardic, regular rhythm, no murmurs or rubs Pulm/Chest: some mild rhonchi, no rales or wheeze, good air entry noted, overall improved Abdomen/GI: soft, nontender, nondistended, +BS noted MSK/Skin: warm, dry, intact, +2 pulses+, no edema or cyanosis Neuro: A&Ox3, no gross focal deficits, full ROM Psych: Appropriate affect and mood Fluid Balance (Past 24 Hours): I= O= Net Intake & Output 12/31/19 01/01/20 01/02/20 01/03/20 06:59 06:59 06:59 06:59 Intake Total 3348 1665 1021 1295 Output Total 710 1800 1185 700 Balance 2638 -135 -164 595 Weight 184 lb 4.903 oz 182 lb 1.629 oz 177 lb 11.081 oz Intake: IV Fluids 3326 1037 32 Abx 258 NS 896 779 32 IVPB 22 138 319 100 Abx 22 138 319 100 Oral 050 595 9050 Output: Urine 210 1350 150 Anaya 910 700 Straight Cath 500 450 Residual 125 Anaya Temperature Probe 125 Other: Estimated Void Small Small Date of Last Bowel 12/31/2019 01/01/2020 01/01/2020 Movement # Bowel Movements 1 1 1 Estimated Stool Amount Small Medium Medium # Voids 1 1 1 Labs: Laboratory Results - last 24 hr 12/31/19 01/01/20 01/01/20 17:41 12:03 16:50 WBC RBC Hgb Hct MCV MCH MCHC RDW Plt Count MPV Neut % (Auto) Lymph % (Auto) [place] % (Auto) Eos % (Auto) Baso % (Auto) Absolute Neuts (auto) Absolute Lymphs (auto) Absolute Monos (auto) Absolute Eos (auto) Absolute Basos (auto) Absolute Nucleated RBC Nucleated RBC % Sodium Potassium Chloride Carbon Dioxide Anion Gap BUN Creatinine Est GFR ( Amer) Est GFR (Non-Af Amer) BUN/Creatinine Ratio Glucose POC Glucose (mg/dL) 170 H 191 H 175 H Calcium Total Bilirubin AST ALT Alkaline Phosphatase Total Protein Albumin Globulin Albumin/Globulin Ratio Vancomycin Trough 01/01/20 01/02/20 01/02/20 20:31 06:08 06:08 WBC 9.5 RBC 4.71 Hgb 13.0 L Hct 39 L MCV 82 MCH 28 MCHC 34 RDW 15 Plt Count 214 MPV 7.3 L Neut % (Auto) 87.3 Lymph % (Auto) 4.2 [place] % (Auto) 7.7 Eos % (Auto) 0.4 Baso % (Auto) 0.4 Absolute Neuts (auto) 8.3 H Absolute Lymphs (auto) 0.4 L Absolute Monos (auto) 0.7 Absolute Eos (auto) 0.0 Absolute Basos (auto) 0.0 Absolute Nucleated RBC 0.0 Nucleated RBC % 0.0 Sodium 142 Potassium 4.0 Chloride 109 Carbon Dioxide 26 Anion Gap 7 BUN 36 H Creatinine 2.03 H Est GFR ( Amer) 38.2 Est GFR (Non-Af Amer) 31.6 BUN/Creatinine Ratio 17.7 Glucose 158 H POC Glucose (mg/dL) 221 H Calcium 7.5 L Total Bilirubin 0.40 AST 13 ALT 11 Alkaline Phosphatase 41 Total Protein 5.6 L Albumin 3.0 L Globulin 2.6 Albumin/Globulin Ratio 1.2 Vancomycin Trough 01/02/20 11:25 WBC RBC Hgb Hct MCV MCH MCHC RDW Plt Count MPV Neut % (Auto) Lymph % (Auto) [place] % (Auto) Eos % (Auto) Baso % (Auto) Absolute Neuts (auto) Absolute Lymphs (auto) Absolute Monos (auto) Absolute Eos (auto) Absolute Basos (auto) Absolute Nucleated RBC Nucleated RBC % Sodium Potassium Chloride Carbon Dioxide Anion Gap BUN Creatinine Est GFR ( Amer) Est GFR (Non-Af Amer) BUN/Creatinine Ratio Glucose POC Glucose (mg/dL) Calcium Total Bilirubin AST ALT Alkaline Phosphatase Total Protein Albumin Globulin Albumin/Globulin Ratio Vancomycin Trough 9.9 Studies: Patient Name: PABLO MACIAS Medical Record#: [id number] Ordering Physician: Devon Mukherjee MD Acct.#: [id number] : 1935 Age: 84 Sex: M Location: INTENSIVE CARE UNIT Exam Date: 01/01/20 0907 ADM Status: ADM IN Order Information: CHEST AP/PORT Accession Number: [id number] CPT: 97857 INDICATION: Follow-up pneumonia COMPARISON: Most recent comparison chest x-ray is dated December 30, 2019 TECHNIQUE: Single AP portable view of the chest was obtained. FINDINGS: Image quality is compromised due to the relative inferiority of a portable chest x-ray. The heart and mediastinum exhibit normal size and contour. There is increased density obscuring the right middle and lower lung and density obscuring the left lung base. The degree of aeration is worse when compared to the December 30, 2019 chest x-ray and much worse when compared to the December 23, 2019 chest x-ray. Visualized bones are normal for the patient's age. IMPRESSION: Interval worsening in aeration relative to the 12/30/2019 and 2019 chest x-rays indicating worsening pneumonia and/or enlarging pleural effusions. Patient Name: PABLO MACIAS Medical Record#: [id number] Ordering Physician: Sole Renteria NP Acct.#: [id number] : 1935 Age: 84 Sex: M Location: EMERGENCY DEPARTMENT Exam Date: 12/30/19 1658 ADM Status: REG ER Order Information: CT CHEST W/O Accession Number: [id number] CPT: 64517 Indication: Respiratory failure. CT of the chest performed without IV contrast. Coronal and sagittal reconstructed images were obtained. Inferior thyroid lobes are unremarkable. Small 3 to 5 mm pretracheal lymph nodes are noted. The heart demonstrates no pericardial effusion. In the right lower lobe there is dense consolidation with air bronchograms consistent with right lower lobe pneumonia. This makes in the right middle lobe. No definite pleural fluid is identified. Left basilar atelectasis is noted. IMPRESSION: Right lower lobe consolidation consistent with right lower lobe pneumonia. Chronic interstitial changes are noted. Nutrition: Heart healthy, consistent carb Impression: This is an 84 year old male with history of heart transplant, DMII, and renal disease that presented to the ED after seeing his PCP for a follow up visit while being treated as an outpatient for community acquired pneumonia, then found to be hypoxic and in respiratory distress. Diagnoses: 1. Acute Hypoxic Respiratory Failure 2/2 CAP/failed outpatient treatment 2. Sever Sepsis, / #1 3. History of Heart Transplant, on immunosupression 4. CKD, st3 5. 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 Plan: Neuro - Mentating appropriately, no active issues CV - EKG with no acute changes, no active issues - Tachycardia noted on tele 11/21 hypoxia - [address] chest with no pericardial effusion - brought copy of last dobutamine stress echo in Jul 2019 - Negative for ischemia, EF 60-65%, no valvular abnormalities - Continue Prograf and CellCept Pulm - Continue vapotherm and wean Fio2 to keep sat>92%, currently 20LPM and 50%FIO2 - No wheezing noted, no indication for nebs - Pulmonary toilet with flutter valve - CT chest with right LL PNA with air bronchograms, worsening PNA on right n today's CXR as above ID - Received sepsis bolus in ED, although BP was stable and lactic acid was 0.8 and 0.5 with no fever - Vanc/cefepime as per ID, will add bactrim today renally dosed given immunosupression and obtain sputum for fungal smear, concern for PCP PNA - Continue CellCept and Prograf at current doses - Afebrile - Follow blood and sputum cultures, currently NTD; follow repeat fungal sputum submitted today as well as viral PCR which are pending GI - Continue Heart healthy, consistent carb diet no caffeine Renal - strict I/O, replete to keep K>4, Mg>2 - Retained urine persistently, anaya inserted today to decompress bladder Heme - SCDs only for DVT prophy given hx of HIT Endo - Maintain BG<200, insulin protocol with lispro SS Musculsk - OOB to chair Wounds- none Nutrition- HH/CC no caffeine DVT prophylaxis: SCDs only GI prophylaxis: None required Anaya Catheter: Continue Disposition: Patient requires Critical Care/ICU for Respiratory failure management with vapotherm Patient clinical status: Fair/improving Code Status: Full code Total Critical Care time is 35 minutes
[2020-01-02] MEDS ORDERED: Furosemide IV* 10 MG/ML VIAL (40 MG) IV ONE (22:26)
--- NOTE | 2020-01-02 22:54 | PN ---
Hospitalist Progress Note Date of Service: 01/02/20 Clinical Update: 84M s/p orthotopic heart transplant, IDDM, CKD Stage 3, hx of HIT last stress echo in 2019 showing EF 55-60% who presented with sepsis and hypoxic resp failure 2/2 CAP not responsive to outpt therapy. Has been on HFNC with good support, not needing pressors. Tonight, had increased WOB, tachypneic to the 30s called to bedside VS: Sinus tach to 120s, 99% on max HFNC, RR 35 PE: Pleasant man speaking in short sentences can answer yes no, awake and alert Tachypneic to the 30s, diaphoretic Lungs dimished ot blt bases but no sig wheeze rhonchi, very scant crackle Belly sof Fercho Sinus tach no murum Warm and well perfused Anaya in place Last labs: Cr 2 CXR: sig cardiomegaly with blt infiltrate from 12/31 Repeat ABG normal, PCO2 42 CXR pending Assessment: 84 full code M w/ above PMH with increasing WOB on HFNC likely all 2 /2 to PNA but can't r/o mild pulm edema, consider PE as not on any PPX though has been tachycardic all along, he has no e/o hypercarbia on his MS exam but would benefit from NIPPV for ventilatory support in WOB Plan: -Initiate BiPAP now for increased WOB not responsive to max HFNC, he has the mental status to handle it and may need the EPAP from BiPAP not really the IPAP -Lasix 40mg IV x1, has anaya, may have some component of pulm edema -If continues to have increased WOB on BIPAP or loses mental status will need to intubate though for now will try to spare him this given excellent mental status and looks immediatley more comfortable on BiPAP -Can trial off BiPAP in a few hours as tolerates -Unable to CTA, low utility in VQ scan as he already has such a high degree of mismatch from his other alveolar pathology -Consider Arixtra at 50% dose reduction CrCl 30 to 50 mL/minute: Use caution; total clearance ~40% lower compared to patients with normal renal function. When used for thromboprophylaxis, the [employer] suggests a 50% reduction in dose or use of low-dose heparin instead of fondaparinux Updated on phone.
[2020-01-03] MEDS ORDERED: NS 0.9% 250 ML* 250 ML ONE (01:01)
[2020-01-03] MEDS: Vancomycin(*) 500 MG in NS 0.9% 250 ML* 250 ML IVPB SCH ×3 (01:03→23:52)
[2020-01-03] MEDS: Cefepime 1 GM in Dextrose(*) 1 GM/50 ML q12h (Duplex) IV SCH ×2 (06:15→18:35)
[2020-01-03 06:34] LABS: ABS Eosinophils 0.1 10^3/ul (0-0.6); ABS Lymphocytes 0.7 10^3/ul (1.0-4.8); ABS Monocytes 0.8 10^3/ul (0-0.8); ABS Neutrophils 6.8 10^3/ul (1.5-7.7); Eosinophil % 1.5 %; Hematocrit 39 % (42-52); Hemoglobin 12.9 g/dL (14.0-18.0); Lymphocyte % 8.2 %; Mean Corpuscular HGB Conc 33 g/dL (31-36); Mean Corpuscular Hemoglobin 28 pg (27-31); Mean Corpuscular Volume 83 fL (80-94); Nucleated Red Blood Cells % 0.1; Platelet Count 200 10^3/uL (150-450); Red Blood Count 4.67 10^6 /uL (4.18-5.48); Red Cell Distribution Width 15 % (10-15); White Blood Count 8.5 10^3/uL (3.5-10.8)
[2020-01-03 06:53] LABS: BUN/Creatinine Ratio 19.3 (8-20); Calcium 7.7 mg/dL (8.6-10.3); EGFR African American 34.3 (>60); EGFR Non-African American 28.4 (>60); Globulin 2.9 g/dL (2-4); Total Bilirubin 0.4 mg/dL (0.2-1.0); Total Protein 5.9 g/dL (6.4-8.9)
[2020-01-03] MEDS: Insulin LISPRO* 1 UNITS UNIT SUBCUT SCH ×4 (09:15→21:24)
[2020-01-03] MEDS: Tacrolimus CAP(*) 1 MG PO SCH (09:16)
[2020-01-03] MEDS: Mycophenolate Mofetil TAB(*) 500 MG PO SCH ×2 (09:16→21:25)
[2020-01-03] MEDS: DIPYRIDAMOLE PO SCH ×2 (09:16→21:24)
[2020-01-03] MEDS: ASPIRIN PO SCH ×2 (09:16→21:24)
[2020-01-03] MEDS: Metoprolol Succinate XL TAB* 25 MG PO SCH (09:16)
[2020-01-03] MEDS: Sulfamethox/Trimethoprim SS 400/80* TAB PO SCH (09:16)
[2020-01-03] MEDS: Magnesium Oxide TAB* 400 MG PO SCH ×2 (09:16→21:24)
[2020-01-03] MEDS: Sertraline* 25 MG TAB PO SCH (09:16)
[2020-01-03] MEDS: amLODIPine TAB* 5 MG PO SCH (09:16)
[2020-01-03] MEDS: Tamsulosin CAP* 0.4 MG PO SCH (12:39)
[2020-01-03] MEDS ORDERED: ANIDULAFUNGIN IVPB ONE (13:42)
--- NOTE | 2020-01-03 14:00 | PN ---
<Kathie Sharp - Last Filed: 01/03/20 13:52> Date of Service: 01/03/20 Critical Care Services: Overnight events: Patient was tachypneic, and required Bipap overnight. One dose of IV lasix overnight. This morning, he was put back on Vapotherm. No fevers overnight. Still has productive cough. Tele: sinus tachy, HR 114 (persistent) On vapotherm 30 L/85% Vital Signs: Temp Pulse Resp BP SpO2 FiO2 99.5 F 104 29 149/70 97 85 01/03/20 08:30 01/03/20 12:00 01/03/20 12:00 01/03/20 12:00 01/03/20 12:00 01/02 08:00 Physical Exam: General: Alert, NAD HEENT: Normocephalic, atraumatic, non-icteric sclera, moist oral mucosa Neck: soft, supple, no JVD CV: tachycardic, regular rhythm, no murmurs or rubs Pulm/Chest: decreased air entry of right lower lobe, no rales or wheeze Abdomen/GI: soft, nontender, nondistended, +BS noted MSK/Skin: warm, dry, intact, +2 pulses+, no edema or cyanosis Neuro: A&Ox3, no gross focal deficits Psych: Appropriate affect and mood Fluid Balance (Past 24 Hours): V=2102 O= 2485 Net= -660 Intake & Output 01/01/20 01/02/20 01/03/20 01/04/20 06:59 06:59 06:59 06:59 Intake Total 1665 1021 1825 120 Output Total 1800 1185 2485 530 Balance -135 -164 -660 -410 Weight 82.6 kg 80.6 kg 80.8 kg Intake: IV Fluids 1037 32 275 Abx 258 167 NS 779 32 108 IVPB 138 319 355 Abx 138 319 355 Oral 618 543 2747 120 Output: Urine 1350 150 Blue 910 2485 530 Straight Cath 450 Residual 125 Blue Temperature Probe 125 Other: Estimated Void Small Small Date of Last Bowel 12/31/2019 01/01/2020 01/01/2020 Movement # Bowel Movements 1 1 1 Estimated Stool Amount Small Medium Medium # Voids 1 1 1 Labs: Laboratory Results - last 24 hr 03/01/02/20 01/02/20 11:55 16:25 20:14 WBC RBC Hgb Hct MCV MCH MCHC RDW Plt Count MPV Neut % (Auto) Lymph % (Auto) Surry % (Auto) Eos % (Auto) Baso % (Auto) Absolute Neuts (auto) Absolute Lymphs (auto) Absolute Monos (auto) Absolute Eos (auto) Absolute Basos (auto) Absolute Nucleated RBC Nucleated RBC % Patient Temperature ABG pH ABG pCO2 ABG pO2 ABG HCO3 ABG O2 Saturation ABG Base Excess Respiration Rate O2 Delivery Device Ventilator Type Vent Mode FiO2 Inspiratory Time PEEP Pressure Support Pressure Control EPAP IPAP BiPAP Sodium Potassium Chloride Carbon Dioxide Anion Gap BUN Creatinine Est GFR ( Amer) Est GFR (Non-Af Amer) BUN/Creatinine Ratio Glucose POC Glucose (mg/dL) 200 H 198 H 191 H Calcium Total Bilirubin AST ALT Alkaline Phosphatase Total Protein Albumin Globulin Albumin/Globulin Ratio 01/02/20 01/03/20 01/03/20 22:31 06:15 06:15 WBC 8.5 RBC 4.67 Hgb 12.9 L Hct 39 L MCV 83 MCH 28 MCHC 33 RDW 15 Plt Count 200 MPV 7.0 L Neut % (Auto) 80.4 Lymph % (Auto) 8.2 Surry % (Auto) 9.3 Eos % (Auto) 1.5 Baso % (Auto) 0.6 Absolute Neuts (auto) 6.8 Absolute Lymphs (auto) 0.7 L Absolute Monos (auto) 0.8 Absolute Eos (auto) 0.1 Absolute Basos (auto) 0.0 Absolute Nucleated RBC 0.0 Nucleated RBC % 0.1 Patient Temperature Not Reportable ABG pH 7.38 ABG pCO2 42 ABG pO2 86 ABG HCO3 24.6 ABG O2 Saturation 98.6 H ABG Base Excess -0.4 Respiration Rate Not Reportable O2 Delivery Device vapo Ventilator Type Not Reportable Vent Mode Not Reportable FiO2 100 Inspiratory Time Not Reportable PEEP Not Reportable Pressure Support Not Reportable Pressure Control Not Reportable EPAP Not Reportable IPAP Not Reportable BiPAP Not Reportable Sodium 140 Potassium 4.0 Chloride 108 Carbon Dioxide 24 Anion Gap 8 BUN 43 H Creatinine 2.23 H Est GFR ( Amer) 34.3 Est GFR (Non-Af Amer) 28.4 BUN/Creatinine Ratio 19.3 Glucose 141 H POC Glucose (mg/dL) Calcium 7.7 L Total Bilirubin 0.40 AST 17 ALT 12 Alkaline Phosphatase 40 Total Protein 5.9 L Albumin 3.0 L Globulin 2.9 Albumin/Globulin Ratio 1.0 Studies: CXR 01/02: bilateral consolidation, mainly right lower lobe consolidation, slightly improving compared with CXR 01/01 Nutrition: Heart healthy diet Impression: This is an 84 year old male with history of heart transplant 2004, DMII, and renal disease that presented to the ED after seeing his PCP for a follow up visit while being treated as an outpatient for community acquired pneumonia, found to be hypoxic respiratory failure with significant right side pneumonia in CXR. Diagnoses: 1. Acute Hypoxic Respiratory Failure due to pneumonia, likely bacterial in nature, fungal is in consideration due to his immunocompromised status. 2. Severe Sepsis, / #1 3. History of Heart Transplant, on prograf and cellcept 4. 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 Plan: Neuro - Mentating appropriately, no active issues CV - Persistent Tachycardia noted on tele 11/21 HR 100-120, probably due to hypoxia on top of sympthavagal imbalance - continue home dose metoprolol - CT chest with no pericardial effusion - brought copy of last dobutamine stress echo in Jul 2019 - Negative for ischemia, EF 60-65%, no valvular abnormalities - Continue Prograf and CellCept Pulm - Continue vapotherm and wean Fio2 to keep sat>92%, currently 30LPM and 85%FIO2 - may need to go back to Bipap if not doing well with vapotherm - No wheezing noted, no indication for nebs - Pulmonary toilet with flutter valve - CT chest with right LL PNA with air bronchograms, worsening PNA on right n today's CXR as above ID - Received sepsis bolus in ED, although BP was stable and lactic acid was 0.8 and 0.5 with no fever - ID consult today - continue Vanc/cefepime (12/29-) - appreciate ID input, off bactrim, give one dose of anidulafungin to cover nancy found in sputum in view of his immunocompromised status - Trace pneumocystis PCR, less likely though - cryptococcus antigen GI - Continue Heart healthy, consistent carb diet no caffeine Renal - strict I/O, replete to keep K>4, Mg>2 - Retained urine persistently, Bule D2 - start flomax. aim to off Blue Heme - SCDs only for DVT prophy given hx of HIT and patient is out of bed - consider fondaparinoux if patient is bedbound Endo - Maintain BG<200, insulin protocol with lispro SS Musculsk - OOB to chair Wounds- none Nutrition- HH/CC no caffeine DVT prophylaxis: SCDs only GI prophylaxis: None required Blue Catheter: Continue Disposition: Patient requires Critical Care/ICU for Respiratory failure management Patient clinical status: Fair/improving Code Status: Full code Total Critical Care time is 35 minutes <Sadaf Gupta - Last Filed: 01/03/20 18:11> Plan: This service has been performed by a resident under the direction of a teaching physician. I, Sadaf Gupta, performed the service, or was physically present during the critical, or [place] portions of the service, furnished by the resident. I participated in the management of the patient. 84M with h/o heart transplant who failed outpatient treatment of CAP. Oxygen requirements stable today but did need bipap overnight. Right lung infiltrates are stable on CXR. Will ask for ID input in setting of immunosuppression. Acute hypoxic respiratory failure 2/2 CAP CKD, stage 3 H/o heart transplant on immunosuppression DM type 2 H/o HIT Wean vapotherm as tolerated. Continue tacrolimus and Cellcept ID consult: will continue cefepime and vanco. Start Flomax and d/c Blue OOB to chair. SCDs only for DVT ppx Critical Care Time: 35 minutes exclusive of teaching/procedures
[2020-01-03] MEDS ORDERED: Anidulafungin* 200 MG in NS 0.9% 250 ML* 200 ML IVPB ONE (14:30)
[2020-01-03] MEDS: Tacrolimus CAP(*) 0.5 MG PO SCH (17:46)
[2020-01-03] MEDS: Atorvastatin* 10 MG TAB PO SCH (18:28)
[2020-01-03 18:34] LABS: C Reactive Protein 156.2 mg/L (<8.01)
[2020-01-03] MEDS ORDERED: Tamsulosin CAP* 0.4 MG PO SCH (21:00)
--- NOTE | 2020-01-03 23:59 | CONS ---
CONSULTATION REPORT: DATE OF CONSULTATION: 01/03/20 PRIMARY CARE PROVIDER: Dr. Orestes Farrell. PROVIDER REQUESTING CONSULTATION: Dr. Sadaf Gupta. CONSULTING SERVICE: Infectious Disease. PROVIDER: Lilli Cueva NP. ATTENDING PROVIDER: Dr. Jonas Byrd.* (DICTATED BY LILLI CUEVA NP) REASON FOR CONSULTATION: Sputum culture with Bree glabrata. IMPRESSION: 1. Community-acquired pneumonia. The patient continues to require Vapotherm and had required BiPAP overnight. The patient is immunocompromised in the setting of a heart transplant in 2004. He is noted to be tachycardic with tachypnea. He states that overall his shortness of breath is improving. He has been afebrile. No leukocytosis. CRP was elevated on admission at 128.71. Sputum culture at the time of admission with Bree glabrata. Repeat sputum culture on 01/01/20 again with Bree glabrata and normal antonio. Blood cultures with no growth on day 4. He has been on vancomycin, Zosyn, and was started on Bactrim yesterday. He reports some improvement in his shortness of breath overall with influenza A and B negative. Urine antigen for Legionella and S. pneumonia negative. Pneumocystis PCR is pending. 2. Acute hypoxemic respiratory failure. Oxygen requirements overall are improving. He continues to require Vapotherm and BiPAP last night, suspect this is secondary to pneumonia. 3. History of coronary artery disease and heart transplant in 2004. The patient is on Prograf and CellCept. 4. Chronic kidney disease, stage III. 5. Diabetes mellitus type 2. RECOMMENDATIONS\\PLAN: Continue cefepime and Vancomycin, trough 15 to 20. Discontinue Bactrim. We will continue to follow along. At this time, do not feel that the Bree glabrata is a pathogen, and we will continue to follow along. Will add a CRP to today's labs. Agree with the cryptococcus antigen and a Pneumocystis PCR is pending at this time. Further recommendations will be based up of the patient's clinical course. HISTORY OF PRESENT ILLNESS: Mr. 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 The patient had been diagnosed with pneumonia outpatient 1 week prior and had been placed on Levaquin and continued to have shortness of breath after starting antibiotics. He was coughing up blood-tinged phlegm and severely dyspneic. He was sent to the emergency room for further evaluation by his PCP. When in the emergency room, the patient was placed on Vapotherm. He had a chest x-ray showing a pneumonia basically unchanged from the week prior. He has been afebrile. No leukocytosis. Elevated CRP. Influenza A and B negative. Urine antigen for Legionella and S. pneumonia negative. He was referred to the hospitalist service for admission. He was admitted to the intensive care unit requiring Vapotherm. He continues to require Vapotherm, although the flow rate has been able to be decreased to 30 L a minute down from 35 and 40 previously. He continues to be tachycardic with tachypnea. He reports overall his breathing is a little bit better. He denies any fevers, chills or weight loss. He reports an occasional productive cough, shortness of breath with exertion, denies joint pain, muscle pain, nausea , vomiting, diarrhea, urinary symptoms, although he has an urinary catheter in place, rash or recent travel. He states that his appetite is okay and he does report some constipation. He has been on cefepime and vanco. He had Bactrim started yesterday. PAST MEDICAL HISTORY: 1. Diabetes mellitus type 2. 2. Coronary artery disease, status post DE and heart transplant. 3. 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 4. History of DVT. 5. Chronic kidney disease, stage III. 6. Hypertension. 7. Hyperlipidemia. 8. TIA. 9. Right adrenal mass. 10. Chronic elevation of the left hemidiaphragm. PAST SURGICAL HISTORY: 1. Status post coronary artery bypass graft. 2. Status post heart transplant. 3. Status post IVC filter. 4. Status post bilateral carotid endarterectomies. 5. Status post knee arthroplasty. HOME MEDICATIONS: 1. Magnesium oxide 800 mg by mouth twice daily. 2. Multivitamin 1 tablet by mouth daily. 3. NPH insulin 58 units subcutaneous daily. 4. Calcium citrate/Vitamin D3 two tablets by mouth twice daily. 5. Metoprolol succinate 25 mg by mouth daily. 6. Sertraline 25 mg by mouth daily. 7. Amlodipine 10 mg by mouth daily. 8. Aggrenox 25/200 one capsule by mouth twice daily. 9. Prograf 1.5 mg by mouth every evening. 10. Atorvastatin 5 mg by mouth Friday, Friday, Friday, and Friday. 11. CellCept 500 mg by mouth twice daily. 12. Prograf 2 mg by mouth every morning. 13. Levaquin 500 mg by mouth daily. Hospital medications: 1. Norvasc 10 mg by mouth daily. 2. Atorvastatin 5 mg by mouth Friday, Friday, Friday, and Friday. 3. Cefepime 1 g IV every 12 hours. 4. Dextrose 12.5 g IV push for glucose less than 60 as needed. 5. Aggrenox 200/25 one capsule by mouth twice daily. 6. Humalog insulin sliding scale with meals and at bedtime. 7. Magnesium oxide 800 mg by mouth twice daily. 8. Metoprolol succinate 25 mg by mouth daily. 9. CellCept 500 mg by mouth twice daily. 10. Sertraline 25 mg by mouth daily. 11. Prograf 1.5 mg by mouth every evening. 12. Prograf 2 mg by mouth every morning. 13. Tamsulosin 0.4 mg by mouth daily. 14. Vancomycin 500 mg IV every 12 hours. ALLERGIES: 1. HEPARIN caused HIT, IV CONTRAST. 2. AMBIEN caused hallucinations. FAMILY HISTORY: Father passed at age 45 in [place] War [place]. Mother passed at age 86 of "old age." Denies family history of recurrent or resistant infections, coronary artery disease, diabetes or cancer. SOCIAL HISTORY: He denies alcohol or recreational drug use. He is a former smoker quitting in 1993, prior to that he had a 50-year half a pack a day smoking history. REVIEW OF SYSTEMS: I performed a 10-point review of systems. All the pertinent positives and negatives are mentioned in the history of present illness. The remaining review of systems are negative. PHYSICAL EXAM: Vital Signs: Temperature 99.5, heart rate 108, respiratory rate 33, O2 sat 96% on Vapotherm, 30 L per minute at 85%, blood pressure 160/ 86. General Appearance: Alert, appears to be in no acute distress. Head: Normocephalic, atraumatic. ENT: Extraocular movements are intact. No subconjunctival hemorrhage. Moist mucous membranes. Neck is supple. No lymphadenopathy. Neurological: Alert and oriented. Cranial nerves II through XII are grossly intact. He moves all extremities. Cardiovascular: Regular rate and rhythm. S1 and S2 present. No murmurs, rubs or gallops heard. Respiratory: No accessory muscle use. The lungs with diminished sounds in the right lower lobe. Abdomen: Bowel sounds present. Abdomen is soft, nontender, nondistended. Extremities: No lower extremity edema. Musculoskeletal: No clubbing or cyanosis noted. He exhibits equal strength in all extremities. No tenderness with palpation of the neck, back or spine. Psychological: Calm and cooperative. Skin: No rashes or abnormalities seen on the exposed skin. DIAGNOSTIC STUDIES/LAB DATA: Sodium 140, potassium 4.0, chloride 108, CO2 24, BUN 43, creatinine 2.23, glucose 141. White blood cell count 8.5, hemoglobin 12.9, hematocrit 39, platelet count 200. Please see impression and recommendations outlined above, recommendations have been discussed with Dr. Gupta. Thank you for asking us to see Mr. Webb in consultation. The case has been discussed with my attending, Dr. Jonas Byrd, who agrees with the plan of care. Reviewed by MIKEY DUQUE 01/09/20 [id number]/CPS #: [id number] MTDD
[2020-01-04 04:50] LABS: ABS Eosinophils 0.1 10^3/ul (0-0.6); ABS Lymphocytes 0.6 10^3/ul (1.0-4.8); ABS Monocytes 0.6 10^3/ul (0-0.8); Eosinophil % 1.5 %; Hematocrit 38 % (42-52); Hemoglobin 12.6 g/dL (14.0-18.0); Lymphocyte % 7.4 %; Mean Corpuscular HGB Conc 33 g/dL (31-36); Mean Corpuscular Hemoglobin 28 pg (27-31); Mean Corpuscular Volume 83 fL (80-94); Mean Platelet Volume 7.1 fL (7.4-10.4); Platelet Count 207 10^3/uL (150-450); Red Blood Count 4.54 10^6 /uL (4.18-5.48); Red Cell Distribution Width 15 % (10-15); White Blood Count 8.4 10^3/uL (3.5-10.8)
[2020-01-04 05:08] LABS: Albumin 2.8 g/dL (3.2-5.2); BUN/Creatinine Ratio 21.1 (8-20); Calcium 7.5 mg/dL (8.6-10.3); EGFR African American 35.2 (>60); EGFR Non-African American 29.1 (>60); Globulin 2.7 g/dL (2-4); Potassium 3.9 mmol/L (3.5-5.0); Total Bilirubin 0.4 mg/dL (0.2-1.0); Total Protein 5.5 g/dL (6.4-8.9)
[2020-01-04] MEDS: Cefepime 1 GM in Dextrose(*) 1 GM/50 ML q12h (Duplex) IV SCH (06:17)
[2020-01-04] MEDS: Insulin LISPRO* 1 UNITS UNIT SUBCUT SCH ×4 (08:11→21:15)
[2020-01-04] MEDS: Magnesium Oxide TAB* 400 MG PO SCH ×2 (08:12→21:15)
[2020-01-04] MEDS: DIPYRIDAMOLE PO SCH ×2 (08:12→21:16)
[2020-01-04] MEDS: Tamsulosin CAP* 0.4 MG PO SCH (08:12)
[2020-01-04] MEDS: amLODIPine TAB* 5 MG PO SCH (08:12)
[2020-01-04] MEDS: Sertraline* 25 MG TAB PO SCH (08:12)
[2020-01-04] MEDS: Metoprolol Succinate XL TAB* 25 MG PO SCH (08:12)
[2020-01-04] MEDS: ASPIRIN PO SCH ×2 (08:12→21:16)
[2020-01-04] MEDS: Mycophenolate Mofetil TAB(*) 500 MG PO SCH ×2 (08:12→21:16)
[2020-01-04] MEDS: Tacrolimus CAP(*) 1 MG PO SCH (08:13)
--- NOTE | 2020-01-04 11:41 | PN ---
Progress Note - Progress Note Date of Service: 01/04/20 SOAP: Subjective: CC: PNA HPI: Mr. Webb is an 84 yo male with PMH significant for DM2, CAD, CVA, hx DVT, CKD 3, HTN, HLD, TIA, right adrenal mass, hx heart transplant; who presented to the hospital with complaints of shortness of breath. He is being treated from PNA and hypoxic respiratory failure. Denies fever, chills, nausea, vomiting, or diarrhea. Continues to have shortness of breath, but feels this is slowly improving overall. He continues to require vapotherm. Objective: Vital Signs - 8 hr 01/04/20 01/04/20 01/04/20 07:45 07:57 08:00 Temperature 98.6 F Pulse Rate 106 111 Respiratory 29 33 Rate Blood Pressure 176/88 (mmHg) O2 Sat by Pulse 95 94 Oximetry Physical Exam: General: NAD, sitting up in a chair Neurological: Alert and Oriented HEENT: Moist MM Cardiovascular: Heart rate regular Respiratory: Lung sounds clear, significantly diminished Abdominal: Bowel sounds present; ABD soft, non tender and non distended MSK: HALL Skin: No rash Laboratory Results - last 24 hr 01/03/20 01/03/20 01/03/20 06:15 08:34 12:15 Sodium 140 Potassium 4.0 Chloride 108 Carbon Dioxide 24 Anion Gap 8 BUN 43 H Creatinine 2.23 H Est GFR ( Amer) 34.3 Est GFR (Non-Af Amer) 28.4 BUN/Creatinine Ratio 19.3 Glucose 141 H POC Glucose (mg/dL) 149 H 231 H Calcium 7.7 L Total Bilirubin 0.40 AST 17 ALT 12 Alkaline Phosphatase 40 C-Reactive Protein 156.20 H Total Protein 5.9 L Albumin 3.0 L Globulin 2.9 Albumin/Globulin Ratio 1.0 01/03/20 01/03/20 01/04/20 17:02 21:16 04:40 WBC 8.4 RBC 4.54 Hgb 12.6 L Hct 38 L MCV 83 MCH 28 MCHC 33 RDW 15 Plt Count 207 MPV 7.1 L Neut % (Auto) 83.0 Lymph % (Auto) 7.4 Kings % (Auto) 7.7 Eos % (Auto) 1.5 Baso % (Auto) 0.4 Absolute Neuts (auto) 7.0 Absolute Lymphs (auto) 0.6 L Absolute Monos (auto) 0.6 Absolute Eos (auto) 0.1 Absolute Basos (auto) 0.0 Absolute Nucleated RBC 0.0 Nucleated RBC % 0.0 POC Glucose (mg/dL) 170 H 173 H 01/04/20 01/04/20 04:40 07:58 Sodium 139 Potassium 3.9 Chloride 106 Carbon Dioxide 25 Anion Gap 8 BUN 46 H Creatinine 2.18 H Est GFR ( Amer) 35.2 Est GFR (Non-Af Amer) 29.1 BUN/Creatinine Ratio 21.1 H Glucose 157 H POC Glucose (mg/dL) 165 H Calcium 7.5 L Total Bilirubin 0.40 AST 15 ALT 16 Alkaline Phosphatase 41 Total Protein 5.5 L Albumin 2.8 L Globulin 2.7 Albumin/Globulin Ratio 1.0 Microbiology 01/01/20 12:27 Fungal Culture - Preliminary Respiratory - Sputum Bree Glabrata 12/30/19 14:26 Aerobic Blood Culture - Preliminary Blood Venous No Growth Day 4 Anaerobic Blood Culture - Preliminary No Growth Day 4 12/30/19 14:26 Aerobic Blood Culture - Preliminary Blood Venous No Growth Day 4 Anaerobic Blood Culture - Preliminary No Growth Day 4 01/01/20 12:27 Gram Stain - Final Sputum Expectorated Sputum Culture - Final Normal Antonio 12/30/19 17:43 Gram Stain - Final Sputum Sputum Culture - Final Bree Glabrata Normal Antonio 01/01/20 11:16 Urine Culture - Final Urine No Growth (<1,000 CFU/mL) 12/31/19 01:50 Legionella Urinary Antigen - Final Urine Negative Legionella Antigen Streptococcus pneumoniae Ag Screen - Final Negative S. pneumo Antigen 12/30/19 20:55 Nasal Screen MRSA (PCR) - Final Nasal Mrsa Not Detected Assessment: 1. Community acquired PNA. Urine antigens negative for legionella and S. Pneumo. Blood cultures with no growth to date. Sputum cultures with Bree Glabrata and Normal antonio. Afebrile and No leukocytosis. Continues to have shortness of breath. Cryptococcus and pneumocystis PCR pending. 2. Acute hypoxic respiratory failure. Continues to require Vapotherm. 3. CAD and history of Heart transplant. Transplant in 2004, on Prograf and CellCept 4. CKD, stage 3. 5. DM2. Plan: Continue Vancomycin (day 5), Cefepime, (day 5) and anidulafungin (day 2).
[2020-01-04] MEDS ORDERED: Vancomycin Trough Check NOTE FOLLOW UP ONE (12:00)
[2020-01-04] MEDS: Vancomycin(*) 500 MG in NS 0.9% 250 ML* 250 ML IVPB SCH ×2 (12:41→23:33)
--- NOTE | 2020-01-04 13:01 | PN ---
<Kathie Sharp - Last Filed: 01/04/20 12:56> Date of Service: 01/04/20 Critical Care Services: Overnight events: Patient was on Bipap overnight, changed to vapotherm since morning. Cough improving, whitish phlegm, less productive. Blue was discontinued today, will watch urine output after removal. Tele: sinus tachy, HR 100-110 (baseline heart rate around 100) On vapotherm 30 L/80% Vital Signs: Temp Pulse Resp BP SpO2 FiO2 98.3 F 105 30 157/81 98 30 01/04/20 12:41 01/04/20 12:30 01/04/20 12:30 01/04/20 12:00 01/04/20 12:30 01/03 12:00 Physical Exam: General: Alert, NAD HEENT: Normocephalic, atraumatic, non-icteric sclera, moist oral mucosa Neck: soft, supple, no JVD CV: tachycardic, regular rhythm, no murmurs or rubs Pulm/Chest: decreased air entry of right lower lobe, no rales or wheeze Abdomen/GI: soft, nontender, nondistended, +BS noted MSK/Skin: warm, dry, intact, +2 pulses+, no edema or cyanosis Neuro: A&Ox3, no gross focal deficits Psych: Appropriate affect and mood Fluid Balance (Past 24 Hours): I= O= Net Intake & Output 01/02/20 01/03/20 01/04/20 01/05/20 06:59 06:59 06:59 06:59 Intake Total 1021 1825 1447 0 Output Total 1185 2485 1545 275 Balance -164 -660 -98 -275 Weight 80.6 kg 80.8 kg 81.3 kg Intake: IV Fluids 32 275 406 Abx 167 20 NS 32 108 386 IVPB 319 355 681 Abx 319 355 681 Oral 670 1195 360 0 Output: Urine 150 Blue 910 2485 1545 275 Residual 125 Blue Temperature Probe 125 Other: Estimated Void Small Small Date of Last Bowel 01/01/2020 01/01/2020 01/03/2020 Movement # Bowel Movements 1 1 1 Estimated Stool Amount Medium Medium Large # Voids 1 1 Labs: Laboratory Results - last 24 hr 01/03/20 01/03/20 01/03/20 06:15 08:34 12:15 WBC RBC Hgb Hct MCV MCH MCHC RDW Plt Count MPV Neut % (Auto) Lymph % (Auto) [place] % (Auto) Eos % (Auto) Baso % (Auto) Absolute Neuts (auto) Absolute Lymphs (auto) Absolute Monos (auto) Absolute Eos (auto) Absolute Basos (auto) Absolute Nucleated RBC Nucleated RBC % Sodium 140 Potassium 4.0 Chloride 108 Carbon Dioxide 24 Anion Gap 8 BUN 43 H Creatinine 2.23 H Est GFR ( Amer) 34.3 Est GFR (Non-Af Amer) 28.4 BUN/Creatinine Ratio 19.3 Glucose 141 H POC Glucose (mg/dL) 149 H 231 H Calcium 7.7 L Total Bilirubin 0.40 AST 17 ALT 12 Alkaline Phosphatase 40 C-Reactive Protein 156.20 H Total Protein 5.9 L Albumin 3.0 L Globulin 2.9 Albumin/Globulin Ratio 1.0 Vancomycin Trough 01/03/20 01/03/20 01/04/20 17:02 21:16 04:40 WBC 8.4 RBC 4.54 Hgb 12.6 L Hct 38 L MCV 83 MCH 28 MCHC 33 RDW 15 Plt Count 207 MPV 7.1 L Neut % (Auto) 83.0 Lymph % (Auto) 7.4 Sebastian % (Auto) 7.7 Eos % (Auto) 1.5 Baso % (Auto) 0.4 Absolute Neuts (auto) 7.0 Absolute Lymphs (auto) 0.6 L Absolute Monos (auto) 0.6 Absolute Eos (auto) 0.1 Absolute Basos (auto) 0.0 Absolute Nucleated RBC 0.0 Nucleated RBC % 0.0 Sodium Potassium Chloride Carbon Dioxide Anion Gap BUN Creatinine Est GFR ( Amer) Est GFR (Non-Af Amer) BUN/Creatinine Ratio Glucose POC Glucose (mg/dL) 170 H 173 H Calcium Total Bilirubin AST ALT Alkaline Phosphatase C-Reactive Protein Total Protein Albumin Globulin Albumin/Globulin Ratio Vancomycin Trough 01/04/20 01/04/20 01/04/20 04:40 07:58 11:38 WBC RBC Hgb Hct MCV MCH MCHC RDW Plt Count MPV Neut % (Auto) Lymph % (Auto) Sebastian % (Auto) Eos % (Auto) Baso % (Auto) Absolute Neuts (auto) Absolute Lymphs (auto) Absolute Monos (auto) Absolute Eos (auto) Absolute Basos (auto) Absolute Nucleated RBC Nucleated RBC % Sodium 139 Potassium 3.9 Chloride 106 Carbon Dioxide 25 Anion Gap 8 BUN 46 H Creatinine 2.18 H Est GFR ( Amer) 35.2 Est GFR (Non-Af Amer) 29.1 BUN/Creatinine Ratio 21.1 H Glucose 157 H POC Glucose (mg/dL) 165 H 231 H Calcium 7.5 L Total Bilirubin 0.40 AST 15 ALT 16 Alkaline Phosphatase 41 C-Reactive Protein Total Protein 5.5 L Albumin 2.8 L Globulin 2.7 Albumin/Globulin Ratio 1.0 Vancomycin Trough 01/04/20 11:40 WBC RBC Hgb Hct MCV MCH MCHC RDW Plt Count MPV Neut % (Auto) Lymph % (Auto) Sebastian % (Auto) Eos % (Auto) Baso % (Auto) Absolute Neuts (auto) Absolute Lymphs (auto) Absolute Monos (auto) Absolute Eos (auto) Absolute Basos (auto) Absolute Nucleated RBC Nucleated RBC % Sodium Potassium Chloride Carbon Dioxide Anion Gap BUN Creatinine Est GFR ( Amer) Est GFR (Non-Af Amer) BUN/Creatinine Ratio Glucose POC Glucose (mg/dL) Calcium Total Bilirubin AST ALT Alkaline Phosphatase C-Reactive Protein Total Protein Albumin Globulin Albumin/Globulin Ratio Vancomycin Trough 15.9 Nutrition: Heart healthy diet Impression: This is an 84 year old male with history of heart transplant 2004, DMII, and renal disease that presented to the ED after seeing his PCP for a follow up visit while being treated as an outpatient for community acquired pneumonia, found to be hypoxic respiratory failure with significant right side pneumonia in CXR. Diagnoses: 1. Acute Hypoxic Respiratory Failure due to pneumonia, likely bacterial in nature, fungal is in consideration due to his immunocompromised status. 2. Severe Sepsis, 2/2 #1 3. History of Heart Transplant, on prograf and cellcept 4. 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 Plan: Neuro - Mentating appropriately, no active issues CV - Baseline Tachycardia 100-120 currently, probably due to sympthavagal imbalance post cardiac surgery - continue home dose metoprolol - brought copy of last dobutamine stress echo in Jul 2019 - Negative for ischemia, EF 60-65%, no valvular abnormalities - Continue Prograf and CellCept Pulm - Continue vapotherm daytime and wean Fio2 to keep sat>92%, currently 30LPM and 80%FIO2 - Nighttime Bipap - Pulmonary toilet with flutter valve - will repeat CXR tomorrow ID - came in with sepsis, now resolved - Appreciate ID input, will continue Vanc/cefepime, while awaiting cryptococcus , PCP results Cover with IV anidulafungin in view of his immunocompromised status - continue Vanc/cefepime (12/29-) GI - Continue Heart healthy, consistent carb diet no caffeine Renal - strict I/O, replete to keep K>4, Mg>2 - Continue Flomax - Blue is off today, watch urine output Heme - SCDs only for DVT prophy given hx of HIT and patient is out of bed Endo - Maintain BG<200, insulin protocol with lispro SS Musculsk - OOB to chair Wounds- none Nutrition- HH/CC no caffeine DVT prophylaxis: SCDs only GI prophylaxis: None required Blue Catheter: off today Disposition: Patient requires Critical Care/ICU for Respiratory failure management Patient clinical status: Fair/improving Code Status: Full code Total Critical Care time is 35 minutes <Sadaf Gupta - Last Filed: 01/04/20 16:44> Plan: Critical Care Time: This service has been performed by a resident under the direction of a teaching physician. I, Sadaf Gupta, performed the service, or was physically present during the critical, or [place] portions of the service, furnished by the resident. I participated in the management of the patient. 84M with h/o heart transplant who failed outpatient treatment of CAP. Acute hypoxic respiratory failure 2/2 CAP CKD, stage 3 H/o heart transplant on immunosuppression DM type 2 H/o HIT Used bipap overnight and he feels he slept very well. He feels his breathing is improving. No other complaints, denies chest pain or abdominal pain. Blue removed this morning. Wean vapotherm as tolerated. Continue tacrolimus and Cellcept Continue cefepime, vanco, and anidulafungin Continue Flomax OOB to chair. SCDs only for DVT ppx Critical Care Time: 30 minutes exclusive of teaching/procedures Sadaf Gupta MD
[2020-01-04] MEDS: Anidulafungin* 100 MG in NS 0.9% 100 ML* 100 ML IVPB SCH (15:42)
[2020-01-04] MEDS: Tacrolimus CAP(*) 0.5 MG PO SCH (17:27)
[2020-01-04] MEDS: Cefepime(*) 1 GM in NS 0.9% 50 ML* 50 ML IVPB SCH (18:34)
[2020-01-05] MEDS: Cefepime(*) 1 GM in NS 0.9% 50 ML* 50 ML IVPB SCH ×2 (06:00→19:29)
[2020-01-05] MEDS: amLODIPine TAB* 5 MG PO SCH (08:54)
[2020-01-05] MEDS: Insulin LISPRO* 1 UNITS UNIT SUBCUT SCH ×4 (08:54→22:05)
[2020-01-05] MEDS: Metoprolol Succinate XL TAB* 25 MG PO SCH (08:54)
[2020-01-05] MEDS: Sertraline* 25 MG TAB PO SCH (08:54)
[2020-01-05] MEDS: Tamsulosin CAP* 0.4 MG PO SCH (08:54)
[2020-01-05] MEDS: Magnesium Oxide TAB* 400 MG PO SCH ×2 (08:54→22:05)
[2020-01-05] MEDS: Mycophenolate Mofetil TAB(*) 500 MG PO SCH ×2 (08:59→22:06)
[2020-01-05] MEDS: Tacrolimus CAP(*) 1 MG PO SCH (08:59)
[2020-01-05] MEDS: DIPYRIDAMOLE PO SCH ×2 (08:59→22:06)
[2020-01-05] MEDS: ASPIRIN PO SCH ×2 (08:59→22:06)
--- NOTE | 2020-01-05 11:11 | PN ---
<Kathie Sharp - Last Filed: 01/05/20 11:01> Date of Service: 01/05/20 Critical Care Services: Overnight events: Patient continued to be on Bipap overnight, and vapotherm during daytime. Cough improving, whitish phlegm, less productive. Blue removed yesterday. Still had urinary frequency,urgency, but bladder scan retention 100ml. Tele: sinus tachy, HR 100-110 (baseline heart rate around 100) On vapotherm 30 L/80% Vital Signs: Temp Pulse Resp BP SpO2 FiO2 99.6 F 110 29 171/87 91 80 01/05/20 08:00 01/05/20 10:15 01/05/20 10:15 01/05/20 10:00 01/05/20 10:15 01/04 08:00 Physical Exam: General: Alert, NAD, sitting on bed edge HEENT: Normocephalic, atraumatic, non-icteric sclera, moist oral mucosa Neck: soft, supple, no JVD CV: tachycardic, regular rhythm, no murmurs or rubs Pulm/Chest: decreased air entry of right lower lobe, improving, no rales or wheeze Abdomen/GI: soft, nontender, nondistended, +BS noted MSK/Skin: warm, dry, intact, +2 pulses+, no edema or cyanosis Neuro: A&Ox3, no gross focal deficits Psych: Appropriate affect and mood Fluid Balance (Past 24 Hours): I= O= Net Intake & Output 01/03/20 01/04/20 01/05/20 01/06/20 06:59 06:59 06:59 06:59 Intake Total 1825 1447 1334 Output Total 2485 1545 1675 190 Balance -660 -98 -341 -190 Weight 80.8 kg 81.3 kg 81.601 kg Intake: IV Fluids 275 406 294 Abx 167 20 294 NS 108 386 IVPB 355 681 50 Abx 355 681 50 Oral 1195 360 990 Output: Urine 1400 190 Blue 2485 1545 275 Other: Estimated Void Small Date of Last Bowel 01/01/2020 01/03/2020 01/04/2020 Movement # Bowel Movements 1 1 Estimated Stool Amount Medium Large Small # Voids 1 Labs: Laboratory Results - last 24 hr 01/01/20 01/04/2020 12:27 11:38 11:40 POC Glucose (mg/dL) 231 H Vancomycin Trough 15.9 Pneumocystis Source Sputum Pneumocystis DNA (PCR) Negative 01/04/20 01/04/20 16:53 20:01 POC Glucose (mg/dL) 162 H 196 H Vancomycin Trough Pneumocystis Source Pneumocystis DNA (PCR) Studies: CXR 01/04: bilateral multifocal opacities, mainly on right, similar to previous CXR Nutrition: Heart healthy diet Impression: This is an 84 year old male with history of heart transplant 2004, DMII, and renal disease that presented to the ED after seeing his PCP for a follow up visit while being treated as an outpatient for community acquired pneumonia, found to be hypoxic respiratory failure with significant pneumonia in CXR. 1. Acute Hypoxic Respiratory Failure due to pneumonia, likely bacterial in nature, fungal is in consideration due to his immunocompromised status. 2. Severe Sepsis, 2/ #1 3. History of Heart Transplant, on prograf and cellcept 4. 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 Plan: Neuro - Mentating appropriately, no active issues CV - Baseline Tachycardia 100-120 currently, probably due to sympthavagal imbalance post cardiac surgery - Increase metoprolol dose to 25mg bid, continue home dose amlodipine - brought copy of last dobutamine stress echo in Jul 2019 - Negative for ischemia, EF 60-65%, no valvular abnormalities - Continue Prograf and CellCept Pulm - Continue vapotherm daytime and wean Fio2 to keep sat>92%, currently 30LPM and 80%FIO2 - try to wean down today - Nighttime Bipap - Pulmonary toilet with flutter valve ID - came in with sepsis, now resolved - Legionella, strep pneumo, PCP negative - continue Vanc/cefepime (12/29-), continue iv anidulafungin (01/02-) GI - Continue Heart healthy, consistent carb diet no caffeine Renal - strict I/O, replete to keep K>4, Mg>2 - Continue Flomax - watch I/O Heme - SCDs only for DVT prophy given hx of HIT and patient is out of bed Endo - Maintain BG<200, insulin protocol with lispro SS Musculsk - OOB to chair Wounds- none Nutrition- HH/CC no caffeine DVT prophylaxis: SCDs only GI prophylaxis: None required Blue Catheter: off today Disposition: Patient requires Critical Care/ICU for Respiratory failure management Patient clinical status: Fair/improving Code Status: Full code Total Critical Care time is 30 minutes <Sadaf Gupta - Last Filed: 01/05/20 17:51> Plan: This service has been performed by a resident under the direction of a teaching physician. I, Sadaf Gupta, performed the service, or was physically present during the critical, or [place] portions of the service, furnished by the resident. I participated in the management of the patient. 84M with h/o heart transplant who failed outpatient treatment of CAP. Acute hypoxic respiratory failure 2/2 CAP CKD, stage 3 H/o heart transplant on immunosuppression DM type 2 H/o HIT Bipap overnight. Overall feeling well today. Breathing is still not normal and he does get short of breath with activity. He recovers quickly after he rests. No other complaints, denies chest pain or abdominal pain. Sitting up in chair most of the day. Wean vapotherm as tolerated. Plan to try vapotherm overnight but will use bipap if he desaturates or has increased work of breathing. Will increase metoprolol for HTN Continue tacrolimus and Cellcept Continue cefepime, vanco, and anidulafungin Continue Flomax. OOB to chair. SCDs only for DVT ppx Critical Care Time: 30 minutes exclusive of teaching/procedures Sadaf Gupta MD
[2020-01-05] MEDS: Vancomycin(*) 500 MG in NS 0.9% 250 ML* 250 ML IVPB SCH (11:57)
[2020-01-05] MEDS: Atorvastatin* 10 MG TAB PO SCH (17:31)
[2020-01-05] MEDS: Anidulafungin* 100 MG in NS 0.9% 100 ML* 100 ML IVPB SCH (17:32)
[2020-01-05] MEDS: Tacrolimus CAP(*) 0.5 MG PO SCH (17:39)
[2020-01-05] MEDS ORDERED: Metoprolol Succinate XL TAB* 25 MG PO SCH (21:00)
[2020-01-05] MEDS ORDERED: Metoprolol Tartrate TAB* 25 MG PO ONE (21:00)
[2020-01-06] MEDS: Vancomycin(*) 500 MG in NS 0.9% 250 ML* 250 ML IVPB SCH ×2 (00:22→12:24)
[2020-01-06 04:06] LABS: ABS Eosinophils 0.2 10^3/ul (0-0.6); ABS Lymphocytes 0.5 10^3/ul (1.0-4.8); ABS Monocytes 0.7 10^3/ul (0-0.8); ABS Neutrophils 7.2 10^3/ul (1.5-7.7); Eosinophil % 2.3 %; Hematocrit 37 % (42-52); Hemoglobin 12.1 g/dL (14.0-18.0); Lymphocyte % 6.2 %; Mean Corpuscular HGB Conc 33 g/dL (31-36); Mean Corpuscular Hemoglobin 27 pg (27-31); Mean Corpuscular Volume 83 fL (80-94); Mean Platelet Volume 6.9 fL (7.4-10.4); Nucleated Red Blood Cells % 0.1; Platelet Count 235 10^3/uL (150-450); Red Cell Distribution Width 15 % (10-15); White Blood Count 8.6 10^3/uL (3.5-10.8)
[2020-01-06 04:22] LABS: Albumin 2.9 g/dL (3.2-5.2); Albumin/Globulin Ratio 1.1 (1-3); BUN/Creatinine Ratio 25.9 (8-20); EGFR African American 40.5 (>60); EGFR Non-African American 33.5 (>60); Globulin 2.7 g/dL (2-4); Total Bilirubin 0.4 mg/dL (0.2-1.0); Total Protein 5.6 g/dL (6.4-8.9)
[2020-01-06] MEDS: Cefepime(*) 1 GM in NS 0.9% 50 ML* 50 ML IVPB SCH ×2 (06:10→18:41)
[2020-01-06] MEDS ORDERED: LORazepam INJ* 2 MG/ML 1 ML VIAL IV PUSH ONE (06:41)
[2020-01-06] MEDS ORDERED: Lorazepam PYXIS KEY PRN (06:41)
[2020-01-06] MEDS ORDERED: Lorazepam PYXIS KEY ONE (06:44)
[2020-01-06] MEDS ORDERED: LORazepam INJ* 2 MG/ML 1 ML VIAL ONE (06:45)
[2020-01-06] MEDS ORDERED: Morphine 4 MG/ML VIAL (1 ml) 4 MG/ML VIAL IV PRN ×2 (08:06→08:07)
[2020-01-06] MEDS ORDERED: Morphine INJ* 2 MG/ML 1 ML SYRINGE (TWO MG - NEW SYRINGE VERSION) ONE (08:10)
[2020-01-06] MEDS: ASPIRIN PO SCH ×2 (08:22→20:51)
[2020-01-06] MEDS: DIPYRIDAMOLE PO SCH ×2 (08:22→20:51)
[2020-01-06] MEDS: Sertraline* 25 MG TAB PO SCH (08:22)
[2020-01-06] MEDS: Magnesium Oxide TAB* 400 MG PO SCH ×2 (08:22→20:50)
[2020-01-06] MEDS: amLODIPine TAB* 5 MG PO SCH (08:22)
[2020-01-06] MEDS: Tacrolimus CAP(*) 1 MG PO SCH (08:22)
[2020-01-06] MEDS: Mycophenolate Mofetil TAB(*) 500 MG PO SCH ×2 (08:23→20:49)
[2020-01-06] MEDS: Tamsulosin CAP* 0.4 MG PO SCH (08:23)
[2020-01-06] MEDS ORDERED: Metoprolol Succinate XL TAB* 25 MG PO SCH (09:00)
[2020-01-06] MEDS ORDERED: Furosemide IV* 10 MG/ML VIAL (40 MG) IV SLOW PU ONE (09:06)
[2020-01-06] MEDS: Insulin LISPRO* 1 UNITS UNIT SUBCUT SCH ×4 (09:26→20:49)
[2020-01-06 09:29] LABS: Magnesium 2.3 mg/dL (1.9-2.7)
--- NOTE | 2020-01-06 10:21 | PN ---
<Kathie Sharp - Last Filed: 01/06/20 10:16> Date of Service: 01/06/20 Critical Care Services: Overnight events: Patient desaturated on FiO2 80% Bipap, ABG showing PO2 72, normal PCO2 BP elevated further with his respiratory distress Negative balance for the past 5 days, though positive balance before that. Tele: sinus tachy, HR 110 (baseline HR 100-110) On vapotherm 40 L/100% Vital Signs: Temp Pulse Resp BP SpO2 FiO2 99 F 105 36 170/80 94 100 01/06/20 08:00 01/06/20 06:00 01/06/20 08:21 01/06/20 06:00 01/06/20 06:00 01/05 08:26 Physical Exam: General: Alert, tachypneic on vapotherm, sitting up in bed eating HEENT: Normocephalic, atraumatic, non-icteric sclera, moist oral mucosa Neck: soft, supple, no JVD CV: tachycardic, regular rhythm, no murmurs or rubs Pulm/Chest: rales in bilateral lungs, right lung lower lobe air entry decreased but improving. Abdomen/GI: soft, nontender, nondistended, +BS. MSK/Skin: warm, dry, intact, +2 pulses+, no edema or cyanosis Neuro: A&Ox3, no gross focal deficits Psych: Appropriate affect and mood Fluid Balance (Past 24 Hours): Intake & Output 01/04/20 01/05/20 01/06/20 01/07/20 06:59 06:59 06:59 06:59 Intake Total 1447 1334 1384 Output Total 1545 1675 1565 Balance -98 -341 -181 Weight 81.3 kg 81.601 kg 83.1 kg Intake: IV Fluids 406 294 309 Abx 20 294 250 NS 386 59 IVPB 681 50 475 Abx 681 50 475 Oral 360 990 600 Output: Urine 1400 1565 Blue 1545 275 Other: Date of Last Bowel 01/03/2020 01/04/2020 01/04/2020 Movement # Bowel Movements 1 Estimated Stool Amount Large Small Small Labs: Laboratory Results - last 24 hr 01/04/20 01/05/20 01/05/20 04:40 07:32 11:30 WBC RBC Hgb Hct MCV MCH MCHC RDW Plt Count MPV Neut % (Auto) Lymph % (Auto) [place] % (Auto) Eos % (Auto) Baso % (Auto) Absolute Neuts (auto) Absolute Lymphs (auto) Absolute Monos (auto) Absolute Eos (auto) Absolute Basos (auto) Absolute Nucleated RBC Nucleated RBC % Patient Temperature ABG pH ABG pH (Temp Correct) ABG pCO2 ABG pCO2 (Temp Corrct ABG pO2 ABG pO2 (Temp Correct ABG HCO3 ABG O2 Saturation ABG Base Excess Respiration Rate O2 Delivery Device Ventilator Type Vent Mode FiO2 Inspiratory Time PEEP Pressure Support Pressure Control EPAP IPAP BiPAP Sodium Potassium Chloride Carbon Dioxide Anion Gap BUN Creatinine Est GFR ( Amer) Est GFR (Non-Af Amer) BUN/Creatinine Ratio Glucose POC Glucose (mg/dL) 170 H 251 H Calcium Magnesium Total Bilirubin AST ALT Alkaline Phosphatase Total Protein Albumin Globulin Albumin/Globulin Ratio Cryptococcus Ag Negative 01/05/20 01/05/20 01/06/20 17:31 22:01 04:00 WBC 8.6 RBC 4.50 Hgb 12.1 L Hct 37 L MCV 83 MCH 27 MCHC 33 RDW 15 Plt Count 235 MPV 6.9 L Neut % (Auto) 83.2 Lymph % (Auto) 6.2 [place] % (Auto) 7.8 Eos % (Auto) 2.3 Baso % (Auto) 0.5 Absolute Neuts (auto) 7.2 Absolute Lymphs (auto) 0.5 L Absolute Monos (auto) 0.7 Absolute Eos (auto) 0.2 Absolute Basos (auto) 0.0 Absolute Nucleated RBC 0.0 Nucleated RBC % 0.1 Patient Temperature ABG pH ABG pH (Temp Correct) ABG pCO2 ABG pCO2 (Temp Corrct ABG pO2 ABG pO2 (Temp Correct ABG HCO3 ABG O2 Saturation ABG Base Excess Respiration Rate O2 Delivery Device Ventilator Type Vent Mode FiO2 Inspiratory Time PEEP Pressure Support Pressure Control EPAP IPAP BiPAP Sodium Potassium Chloride Carbon Dioxide Anion Gap BUN Creatinine Est GFR ( Amer) Est GFR (Non-Af Amer) BUN/Creatinine Ratio Glucose POC Glucose (mg/dL) 260 H 180 H Calcium Magnesium Total Bilirubin AST ALT Alkaline Phosphatase Total Protein Albumin Globulin Albumin/Globulin Ratio Cryptococcus Ag 01/06/20 01/06/20 04:00 08:20 WBC RBC Hgb Hct MCV MCH MCHC RDW Plt Count MPV Neut % (Auto) Lymph % (Auto) [place] % (Auto) Eos % (Auto) Baso % (Auto) Absolute Neuts (auto) Absolute Lymphs (auto) Absolute Monos (auto) Absolute Eos (auto) Absolute Basos (auto) Absolute Nucleated RBC Nucleated RBC % Patient Temperature Not Reportable ABG pH 7.36 ABG pH (Temp Correct) Not Reportable ABG pCO2 42 ABG pCO2 (Temp Corrct Not Reportable ABG pO2 72 L ABG pO2 (Temp Correct Not Reportable ABG HCO3 23.5 ABG O2 Saturation 96.8 ABG Base Excess -1.8 Respiration Rate Not Reportable O2 Delivery Device vapo Ventilator Type Not Reportable Vent Mode 40 lpm FiO2 100 Inspiratory Time Not Reportable PEEP Not Reportable Pressure Support Not Reportable Pressure Control Not Reportable EPAP Not Reportable IPAP Not Reportable BiPAP Not Reportable Sodium 138 Potassium 4.0 Chloride 108 Carbon Dioxide 22 Anion Gap 8 BUN 50 H Creatinine 1.93 H Est GFR ( Amer) 40.5 Est GFR (Non-Af Amer) 33.5 BUN/Creatinine Ratio 25.9 H Glucose 159 H POC Glucose (mg/dL) Calcium 8.0 L Magnesium 2.3 Total Bilirubin 0.40 AST 18 ALT 21 Alkaline Phosphatase 44 Total Protein 5.6 L Albumin 2.9 L Globulin 2.7 Albumin/Globulin Ratio 1.1 Cryptococcus Ag Nutrition: Heart healthy Diet Impression: This is an 84 year old male with history of heart transplant 2004, DMII, and renal disease that presented to the ED after seeing his PCP for a follow up visit while being treated as an outpatient for community acquired pneumonia, found to be hypoxic respiratory failure with significant pneumonia in CXR. 1. Acute Hypoxic Respiratory Failure due to pneumonia, likely bacterial in nature, fungal is in consideration due to his immunocompromised status. 2. Severe Sepsis, 2/2 #1 3. History of Heart Transplant, on prograf and cellcept 4. 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 - brought copy of last dobutamine stress echo in Jul 2019 - Negative for ischemia, EF 60-65%, no valvular abnormalities - Continue Prograf and CellCept Pulm - pneumonia not improving despite 7 days of abx and 3 days of antifungal - possible some volume overload component contributing to his dyspnea today - Will do BIPAP daytime as well. - will repeat CXR tomorrow after diuresis - Pulmonary toilet with flutter valve ID - came in with sepsis, now resolved, afebrile - Legionella, strep pneumo, PCP negative - continue Vanc/cefepime (12/29-), continue iv anidulafungin (01/02-) GI - Continue Heart healthy diet no caffeine Renal - strict I/O, replete to keep K>4, Mg>2 - Continue Flomax - watch I/O Heme - SCDs only for DVT prophy given hx of HIT and patient is out of bed Endo - Maintain BG<200, insulin protocol with lispro SS Musculsk - OOB to chair Wounds- none Nutrition- HH/CC no caffeine DVT prophylaxis: SCDs only, encourage ambulation GI prophylaxis: None required Blue Catheter:no Disposition: Patient requires Critical Care/ICU for Respiratory failure management Patient clinical status: Fair Code Status: Full code Total Critical Care time is 30 minutes <Sadaf Gupta - Last Filed: 01/06/20 17:24> Plan: This service has been performed by a resident under the direction of a teaching physician. I, Sadaf Gupta, performed the service, or was physically present during the critical, or [place] portions of the service, furnished by the resident. I participated in the management of the patient. 84M with h/o heart transplant who failed outpatient treatment of CAP. Acute hypoxic respiratory failure 2/2 CAP CKD, stage 3 H/o heart transplant on immunosuppression DM type 2 H/o HIT Shortness of breath was worse overnight. He required Bipap overnight and appeared to have increased work of breathing when switched to vapotherm this morning. He has been on Bipap since breakfast. He has no other complaints, denies chest pain or abdominal pain. Coarse breath sounds and equal air entry bilaterally. LUE swollen, LUE duplex only suggested L cephalic vein thrombus. Continue bipap, try to wean to vapotherm if tolerated. Will increase metoprolol for HTN Continue tacrolimus and Cellcept Continue cefepime, vanco, and anidulafungin Continue Flomax. OOB to chair. Add fondaparinux for DVT ppx Critical Care Time: 30 minutes exclusive of teaching/procedures Sadaf Gupta MD
[2020-01-06] MEDS: Fondaparinux* 2.5 MG/0.5 ML SYRINGE SUBCUT SCH (17:08)
[2020-01-06] MEDS: Anidulafungin* 100 MG in NS 0.9% 100 ML* 100 ML IVPB SCH (17:08)
[2020-01-06] MEDS: Tacrolimus CAP(*) 0.5 MG PO SCH (17:13)
[2020-01-06] MEDS ORDERED: Metoprolol Tartrate TAB* 25 MG PO ONE (21:00)
[2020-01-07] MEDS: Morphine INJ* 2 MG/ML 1 ML SYRINGE (TWO MG - NEW SYRINGE VERSION) IV PRN ×2 (01:06→05:20)
[2020-01-07] MEDS: Cefepime(*) 1 GM in NS 0.9% 50 ML* 50 ML IVPB SCH (06:06)
[2020-01-07] MEDS ORDERED: Insulin GLARGINE(*) 1 UNITS UNIT SUBCUT SCH (08:00)
[2020-01-07] MEDS ORDERED: Insulin GLARGINE(*) 1 UNITS UNIT ONE (08:10)
[2020-01-07] MEDS: Insulin LISPRO* 1 UNITS UNIT SUBCUT SCH ×3 (08:16→18:20)
[2020-01-07] MEDS: Tacrolimus CAP(*) 1 MG PO SCH (08:18)
[2020-01-07] MEDS: Sertraline* 25 MG TAB PO SCH (08:21)
[2020-01-07] MEDS: Tamsulosin CAP* 0.4 MG PO SCH (08:21)
[2020-01-07] MEDS: amLODIPine TAB* 5 MG PO SCH (08:21)
[2020-01-07] MEDS: DIPYRIDAMOLE PO SCH (08:22)
[2020-01-07] MEDS: ASPIRIN PO SCH (08:22)
[2020-01-07] MEDS: Mycophenolate Mofetil TAB(*) 500 MG PO SCH (08:22)
[2020-01-07] MEDS: Magnesium Oxide TAB* 400 MG PO SCH (08:22)
[2020-01-07] MEDS ORDERED: Metoprolol Tartrate TAB* 25 MG PO SCH (09:00)
[2020-01-07] MEDS ORDERED: Furosemide IV* 10 MG/ML VIAL (40 MG) IV SLOW PU SCH (09:00)
--- NOTE | 2020-01-07 10:02 | PN ---
Progress Note - Progress Note Date of Service: 01/07/20 SOAP: Subjective: CC: PNA and respiratory failure HPI: Mr. Webb is an 84 yo male with PMH significant for DM2, CAD, CVA, hx DVT, CKD 3, HTN, HLD, TIA, right adrenal mass, hx heart transplant; who presented to the hospital with complaints of shortness of breath. He is being treated from PNA and hypoxic respiratory failure. Denies fever, chills, nausea, vomiting, or diarrhea. Continues to have shortness of breath and an occasional cough. He continues to require vapotherm and BiPAP. He is having a difficult time tolerating BiPAP. Objective: Vital Signs 01/07/20 08:00 Temperature 97.7 F Pulse Rate 103 Respiratory 29 Rate Blood Pressure 169/84 (mmHg) O2 Sat by Pulse 92 Oximetry Physical Exam: General: NAD, anxious appearing, sitting up in bed Neurological: Alert and Oriented HEENT: Dry MM Cardiovascular: Heart rate regular Respiratory: Lung sounds significantly diminished with crackles on the right Abdominal: Bowel sounds present; ABD soft, non tender and non distended MSK: HALL Skin: No rash Laboratory Last Values WBC 8.6 10^3/uL (3.5-10.8) 01/06/20 04:00 RBC 4.50 10^6 /uL (4.18-5.48) 01/06/20 04:00 Hgb 12.1 g/dL (14.0-18.0) L 01/06/20 04:00 Hct 37 % (42-52) L 01/06/20 04:00 MCV 83 fL (80-94) 01/06/20 04:00 MCH 27 pg (27-31) 01/06/20 04:00 MCHC 33 g/dL (31-36) 01/06/20 04:00 RDW 15 % (10-15) 01/06/20 04:00 Plt Count 235 10^3/uL (150-450) 01/06/20 04:00 MPV 6.9 fL (7.4-10.4) L 01/06/20 04:00 Neut % (Auto) 83.2 % 01/06/20 04:00 Lymph % (Auto) 6.2 % 01/06/20 04:00 Larue % (Auto) 7.8 % 01/06/20 04:00 Eos % (Auto) 2.3 % 01/06/20 04:00 Baso % (Auto) 0.5 % 01/06/20 04:00 Absolute Neuts (auto) 7.2 10^3/ul (1.5-7.7) 01/06/20 04:00 Absolute Lymphs (auto) 0.5 10^3/ul (1.0-4.8) L 01/06/20 04:00 Absolute Monos (auto) 0.7 10^3/ul (0-0.8) 01/06/20 04:00 Absolute Eos (auto) 0.2 10^3/ul (0-0.6) 01/06/20 04:00 Absolute Basos (auto) 0.0 10^3/ul (0-0.2) 01/06/20 04:00 Absolute Nucleated RBC 0.0 10^3/ul 01/06/20 04:00 Nucleated RBC % 0.1 01/06/20 04:00 INR (Anticoag Therapy) 1.20 (0.82-1.09) H 12/30/19 14:26 APTT 34.7 seconds (26.0-38.0) 12/30/19 14:26 Patient Temperature Not Reportable 01/06/20 08:20 ABG pH 7.36 (7.35-7.45) 01/06/20 08:20 ABG pH (Temp Correct) Not Reportable 01/06/20 08:20 ABG pCO2 42 mmHg (35-45) 01/06/20 08:20 ABG pCO2 (Temp Corrct Not Reportable 01/06/20 08:20 ABG pO2 72 mmHg (80-100) L 01/06/20 08:20 ABG pO2 (Temp Correct Not Reportable 01/06/20 08:20 ABG HCO3 23.5 mmol/L (19-31) 01/06/20 08:20 ABG O2 Saturation 96.8 % (94.0-98.0) 01/06/20 08:20 ABG Base Excess -1.8 mmol/L (-2.0-2.0) 01/06/20 08:20 Respiration Rate Not Reportable 01/06/20 08:20 O2 Delivery Device vapo 01/06/20 08:20 Ventilator Type Not Reportable 01/06/20 08:20 Vent Mode 40 lpm 01/06/20 08:20 FiO2 100 01/06/20 08:20 Inspiratory Time Not Reportable 01/06/20 08:20 PEEP Not Reportable 01/06/20 08:20 Pressure Support Not Reportable 01/06/20 08:20 Pressure Control Not Reportable 01/06/20 08:20 EPAP Not Reportable 01/06/20 08:20 IPAP Not Reportable 01/06/20 08:20 BiPAP Not Reportable 01/06/20 08:20 Sodium 138 mmol/L (135-145) 01/06/20 04:00 Potassium 4.0 mmol/L (3.5-5.0) 01/06/20 04:00 Chloride 108 mmol/L (101-111) 01/06/20 04:00 Carbon Dioxide 22 mmol/L (22-32) 01/06/20 04:00 Anion Gap 8 mmol/L (2-11) 01/06/20 04:00 BUN 50 mg/dL (6-24) H 01/06/20 04:00 Creatinine 1.93 mg/dL (0.67-1.17) H 01/06/20 04:00 Est GFR ( Amer) 40.5 (>60) 01/06/20 04:00 Est GFR (Non-Af Amer) 33.5 (>60) 01/06/20 04:00 BUN/Creatinine Ratio 25.9 (8-20) H 01/06/20 04:00 Glucose 159 mg/dL (70-100) H 01/06/20 04:00 POC Glucose (mg/dL) 176 mg/dL (70-100) H 01/07/20 07:35 Lactic Acid 0.5 mmol/L (0.5-2.0) 12/30/19 18:14 Calcium 8.0 mg/dL (8.6-10.3) L 01/06/20 04:00 Magnesium 2.3 mg/dL (1.9-2.7) 01/06/20 04:00 Total Bilirubin 0.40 mg/dL (0.2-1.0) 01/06/20 04:00 AST 18 U/L (13-39) 01/06/20 04:00 ALT 21 U/L (7-52) 01/06/20 04:00 Alkaline Phosphatase 44 U/L (34-104) 01/06/20 04:00 Troponin I 0.01 ng/mL (<0.03) 12/30/19 14:26 C-Reactive Protein 156.20 mg/L (<8.01) H 01/03/20 06:15 Total Protein 5.6 g/dL (6.4-8.9) L 01/06/20 04:00 Albumin 2.9 g/dL (3.2-5.2) L 01/06/20 04:00 Globulin 2.7 g/dL (2-4) 01/06/20 04:00 Albumin/Globulin Ratio 1.1 (1-3) 01/06/20 04:00 Urine Color Yellow 01/01/20 11:16 Urine Appearance Clear 01/01/20 11:16 Urine pH 6.0 (5-9) 01/01/20 11:16 Ur Specific [place] 1.012 (1.010-1.030) 01/01/20 11:16 Urine Protein 2+(100 mg/dl) (Negative) A 01/01/20 11:16 Urine Ketones Negative (Negative) 01/01/20 11:16 Urine Blood 1+ (Negative) A 01/01/20 11:16 Urine Nitrate Negative (Negative) 01/01/20 11:16 Urine Bilirubin Negative (Negative) 01/01/20 11:16 Urine Urobilinogen Negative (Negative) 01/01/20 11:16 Ur Leukocyte Esterase Negative (Negative) 01/01/20 11:16 Urine WBC (Auto) Trace(0-5/hpf) (Absent) 01/01/20 11:16 Urine RBC (Auto) 1+(3-5/hpf) (Absent) A 01/01/20 11:16 Ur Squamous Epith Cells Present (Absent) A 01/01/20 11:16 Urine Bacteria Absent (Absent) 01/01/20 11:16 Urine Glucose 1+(50 mg/dl) (Negative) A 01/01/20 11:16 Vancomycin Trough 15.9 mcg/mL 01/04/20 11:40 Cryptococcus Ag Negative (Negative) 01/04/20 04:40 Influenza A (Rapid) Negative (Negative) 12/30/19 15:04 Influenza B (Rapid) Negative (Negative) 12/30/19 15:04 Pneumocystis Source Sputum 01/01/20 12:27 Pneumocystis DNA (PCR) Negative 01/01/20 12:27 Microbiology 12/30/19 14:26 Aerobic Blood Culture - Final Blood Venous No Growth Day 5 Anaerobic Blood Culture - Final No Growth Day 5 12/30/19 14:26 Aerobic Blood Culture - Final Blood Venous No Growth Day 5 Anaerobic Blood Culture - Final No Growth Day 5 01/01/20 12:27 Fungal Culture - Preliminary Respiratory - Sputum Bree Glabrata 01/01/20 12:27 Gram Stain - Final Sputum Expectorated Sputum Culture - Final Normal Antonio 12/30/19 17:43 Gram Stain - Final Sputum Sputum Culture - Final Bree Glabrata Normal Antonio 01/01/20 11:16 Urine Culture - Final Urine No Growth (<1,000 CFU/mL) 12/31/19 01:50 Legionella Urinary Antigen - Final Urine Negative Legionella Antigen Streptococcus pneumoniae Ag Screen - Final Negative S. pneumo Antigen 12/30/19 20:55 Nasal Screen MRSA (PCR) - Final Nasal Mrsa Not Detected Assessment: 1. Community acquired PNA. Urine antigens negative for legionella and S. Pneumo. Blood cultures with no growth to date. Sputum cultures with Bree Glabrata and Normal antonio. Continues to have shortness of breath. Chest xray from this morning with similar patchy bilateral airspace opacification. Cryptococcus and pneumocystis PCR negative. Afebrile and No leukocytosis. 2. Acute hypoxic respiratory failure. Worsening, requiring BiPAP more and Vapotherm. Having a difficult time tolerating BiPAP for extended periods of time. 3. CAD and history of Heart transplant. Transplant in 2004, on Prograf and CellCept 4. CKD, stage 3. 5. DM2. Plan: Discontinue Cefepime, (day 9). Start Zosyn. Continue Vancomycin (day 9) and anidulafungin (day 5). Obtain a viral respiratory panel. Floor time 25 minutes
[2020-01-07] MEDS ORDERED: Lorazepam PYXIS KEY PRN (10:17)
[2020-01-07] MEDS: LORazepam INJ* 2 MG/ML 1 ML VIAL IV PUSH SCH ×2 (11:23→16:22)
[2020-01-07] MEDS ORDERED: Vancomycin Trough Check NOTE FOLLOW UP ONE (11:30)
[2020-01-07] MEDS ORDERED: Zosyn per Pharmacy* NOTE FOLLOW UP SCH (13:00)
--- NOTE | 2020-01-07 13:06 | ECHO ---
*[facility]* [place] [address] Fax #: [phone] Transthoracic Echocardiogram Patient: Hany Webb : 1935 Study Date: 01/07/2020 Age: 84 Gender: M HR: 99 bpm Height: 64 in /162.6 cm BSA: 1.88 m^2 Weight: 181.6 lb /82.6 kg BMI: 31.2 kg/m^2 *Tripe Washer: * Angela Cunningham [facility] *Referring Physician: * Kathie Sharp *Reading Physician: * Eulalio Arriola MD Indications: Resp Insufficiency. History: Congestive heart failure. Transient ischemic attack. Risk factors: Hypertension. Diabetes mellitus. Dyslipidemia. Labs, prior tests, procedures, and surgery: Cardiac transplant (2003). Conclusions Summary: - Left ventricle: Systolic function is normal. The estimated ejection fraction is 55-60%. - Left atrium: The atrium is mildly dilated. - Right atrium: The atrium is mildly dilated. - Mitral valve: There is trace regurgitation. - Tricuspid valve: There is trace regurgitation. - C/t 10/14/2013, no overt significant changes. Study data: Transthoracic echocardiogram. Procedure: Transthoracic echocardiography was performed. Image quality was suboptimal. The study was technically limited due to restricted patient mobility. Patient decined Definity. Complete 2D, spectral Doppler, and color flow Doppler. Location: Bedside. Patient status: Inpatient. Patient room number: ICU-05. Rhythm: Normal sinus rhythm. Findings Left ventricle: The cavity size is normal. Wall thickness is mildly increased. Systolic function is normal. The estimated ejection fraction is 55-60%. Although no diagnostic regional wall motion abnormality is identified, this possibility cannot be completely excluded on the basis of this study. There is no consistent Doppler evidence of clinically significant diastolic dysfunction. Right ventricle: Not well visualized. Systolic function is normal. Systolic pressure cannot be accurately determined, but appears to be increased. Left atrium: The atrium is mildly dilated. Right atrium: The atrium is mildly dilated. Mitral valve: The leaflets are mildly thickened. There is no evidence of stenosis. There is trace regurgitation. Aortic valve: The valve is trileaflet. The leaflets are mildly thickened. There is no evidence of stenosis. There is no significant regurgitation. Tricuspid valve: Not well visualized. The leaflets are normal thickness. There is no evidence of stenosis. There is trace regurgitation. Pulmonic valve: The leaflets are normal thickness. There is no evidence of stenosis. There is trace regurgitation. Aorta: Aortic root: The aortic root is appears normal. Ascending aorta: The ascending aorta is appears normal. Aortic arch: The aortic arch is poorly visualized. Pericardium: There is no significant pericardial effusion. Pulmonary arteries: Poorly visualized. The main pulmonary artery is normal-sized. Systolic pressure can not be accurately estimated. Systemic veins: Inferior vena cava: The vessel is dilated. There is (< 50%) respiratory change in the IVC dimension. Measurements Left ventricle Value Ref Right atrium Value Ref PREM, LAX (L) 4.0 cm 4.2 - 5.8 SI dim, ES (H) 5.5 cm 3.4 - 5.3 ESD, LAX 2.7 cm 2.5 - 4.0 ML dim, ES, A4C (H) 5.1 cm 2.6 - 4.4 FS, LAX 33 % 25 - 43 Estimated RAP 15 mm Hg --------- PW, ED, LAX (H) 1.2 cm 0.6 - 1.0 FS 33 % 25 - 43 Aortic valve Value Ref Mid-wall FS 12 % Domingo diam, ED 2.0 cm --------- PW, ED (H) 1.2 cm 0.6 - 1.0 Peak v, S 1.07 m/sec --------- E', lat domingo, TDI (L) 9.6 cm/sec >=10.0 VTI, S 22.6 cm --- ------ E/e', lat domingo, 11 Mean grad, S 2.0 mm Hg ------ --- TDI Peak grad, S 5.0 mm Hg --------- E', med domingo, TDI (L) 4.9 cm/sec >=7.0 LVOT/AV, VTI ratio 0.8 --- ------ E/e', med domingo, 22 CHARLINE, VTI 2.50 cm^2 ------ --- TDI CHARLINE, Vmax 2.93 cm^2 --------- E', avg, TDI 7.3 cm/sec E/e', avg, TDI (H) 15 <=14 Mitral valve Value Ref Peak E 1.07 m/sec --------- LVOT Value Ref Peak A 0.5 m/sec --------- Diam, S 2.00 cm Decel time 123 ms --------- Area 3.1 cm^2 Peak grad, D 4.6 mm Hg --------- Peak marcela, S 1 m/sec Peak E/A ratio 2.1 --------- VTI, S 18.0 cm Mean grad, S 2 mm Hg Pulmonic valve Value Ref SV 57 ml Peak v, S 0.85 m/sec --------- SV/bsa 30 ml/m^2 Peak grad, S 3.0 mm Hg --------- Ventricular septum Value Ref Aortic root Value Ref IVS, ED (H) 1.2 cm 0.6 - 1.0 Root diam 2.9 cm <4.1 Right ventricle Value Ref Ascending aorta Value Ref PREM, LAX 2.9 cm AAo AP diam, S 3.0 cm --------- Left atrium Value Ref Decending aorta Value Ref AP dim, ES 3.90 cm 3.00 - Manpreet peak marcela 0.61 m/sec --------- 4.00 ML dim, A4C 5.3 cm Inferior vena cava Value Ref SI dim, A4C 6.5 cm Diam 2.4 cm --------- Vol/bsa, ES, 1-p 32 ml/m^2 12 - 37 A4C Vol/bsa, ES, A/L 34 ml/m^2 16 - 34 Legend: (L) and (H) rahel values outside specified reference range. Prepared and electronically signed by Eulalio Arriola MD 01/07/2020 13:05
[2020-01-07] MEDS ORDERED: ZOSYN 3.375 GM x ONE DOSE over 30 miuntes IVPB ×2 (13:30)
--- NOTE | 2020-01-07 14:18 | PN ---
<Kathie Sharp - Last Filed: 01/07/20 14:10> Date of Service: 01/07/20 Critical Care Services: Overnight events: Patient required FiO2 100% Bipap Cough dried up, not plegmy. Tele: sinus tachy, HR 110 (baseline HR 100-110) Vent: Bipap 100% Vital Signs: Temp Pulse Resp BP SpO2 FiO2 99.4 F 99 30 140/71 91 100 01/07/20 12:00 01/07/20 13:00 01/07/20 13:00 01/07/20 13:00 01/07/20 13:00 01/06 13:00 Physical Exam: General: Alert, tachypneic on vapotherm, sitting up in bed eating HEENT: Normocephalic, atraumatic, non-icteric sclera, moist oral mucosa Neck: soft, supple, no JVD CV: tachycardic, regular rhythm, no murmurs or rubs Pulm/Chest: rales in bilateral lungs, right lung lower lobe air entry decreased Abdomen/GI: soft, nontender, nondistended, +BS. MSK/Skin: warm, dry, intact, +2 pulses+, no edema or cyanosis Neuro: A&Ox3, no gross focal deficits Extremity: left hand swelling, no redness, no pain. Psych: Appropriate affect and mood Fluid Balance (Past 24 Hours): I= O= Net Intake & Output 01/05/20 01/06/20 01/07/20 01/08/20 06:59 06:59 06:59 06:59 Intake Total 1334 1384 1534 Output Total 1675 1565 1450 200 Balance -341 -181 84 -200 Weight 81.601 kg 83.1 kg 82.611 kg Intake: IV Fluids 294 309 95 Abx 294 250 NS 59 95 IVPB 50 475 1119 Abx 50 475 1119 Oral 990 600 320 Output: Urine 1400 1565 1450 200 Blue 275 Other: Date of Last Bowel 01/04/2020 01/04/2020 Movement Estimated Stool Amount Small Small Labs: Laboratory Results - last 24 hr 01/06/20 01/06/20 01/07/20 16:48 20:43 07:35 POC Glucose (mg/dL) 254 H 238 H 176 H Studies: CXR 01/06: bilateral opacification slightly improved. Nutrition: Heart healthy diet Impression: This is an 84 year old male with history of heart transplant 2004, DMII, and renal disease that presented to the ED after seeing his PCP for a follow up visit while being treated as an outpatient for community acquired pneumonia, found to be hypoxic respiratory failure with significant pneumonia in CXR. 1. Acute Hypoxic Respiratory Failure due to pneumonia, likely bacterial in nature, fungal is in consideration due to his immunocompromised status. 2. Severe Sepsis, 2/ #1 3. History of Heart Transplant, on prograf and cellcept 4. 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 - Baseline Tachycardia 100-120 currently, probably due to sympthavagal imbalance post cardiac surgery - Continue Prograf and CellCept Pulm - pneumonia not improving despite 8 days of abx and 4 days of antifungal - some volume overload component on top of his pneumonia, will continue diuresis - change cefepime to zosyn, continue vancomycin and anidulafungin - Will trial to wean down Bipap, keep spO2>92 - ABG today - Pulmonary toilet with flutter valve ID - came in with sepsis, now resolved, afebrile - Legionella, strep pneumo, PCP negative - Vanc(12/29-)/zosyn(01/06-), completed Vanc/cefepime (12/29-01/05), continue iv anidulafungin (01/02-) - appreciate id input, convert to zosyn today, keep vanco and anidulafungin GI - Continue Heart healthy diet no caffeine Renal - strict I/O, replete to keep K>4, Mg>2 - Continue Flomax - watch I/O Heme - left arm superficial venous thrombosis, no DVT - start fondaparinux for dvt prophylaxis, HIT history Endo - Maintain BG<200, insulin protocol with lispro SS - start sc lantus 6U Musculsk - OOB to chair Wounds- none Nutrition- HH/CC no caffeine DVT prophylaxis: SCDs and fun GI prophylaxis: None required Blue Catheter:no Disposition: Patient requires Critical Care/ICU for Respiratory failure management Patient clinical status: Fair Code Status: Full code Total Critical Care time is 30 minutes <Joceline Mendez - Last Filed: 01/07/20 19:11> Vital Signs: Temp Pulse Resp BP SpO2 FiO2 99.1 F 100 36 150/72 95 100 01/07/20 16:00 01/07/20 17:00 01/07/20 18:21 01/07/20 17:00 01/07/20 17:00 01/06 16:00 Physical Exam: Gen: HEENT: Lungs: Cardiac: Abdomen: Extremities: Neuro: Fluid Balance (Past 24 Hours): I= O= Net Intake & Output 01/05/20 01/06/20 01/07/20 01/08/20 06:59 06:59 06:59 06:59 Intake Total 1334 1384 1534 15 Output Total 1675 1565 1450 600 Balance -341 -181 84 -585 Weight 179 lb 14.4 oz 183 lb 3.266 oz 182 lb 2 oz Intake: IV Fluids 294 309 95 15 Abx 294 250 NS 59 95 15 IVPB 50 475 1119 Abx 50 475 1119 Oral 990 600 320 0 Output: Urine 1400 1565 1450 600 Blue 275 Other: Date of Last Bowel 01/04/2020 01/04/2020 Movement Estimated Stool Amount Small Small Labs: Laboratory Results - last 24 hr 01/06/20 01/07/20 01/07/20 20:43 07:35 13:25 Patient Temperature ABG pH ABG pH (Temp Correct) ABG pCO2 ABG pCO2 (Temp Corrct ABG pO2 ABG pO2 (Temp Correct ABG HCO3 ABG O2 Saturation ABG Base Excess Respiration Rate O2 Delivery Device Ventilator Type Vent Mode FiO2 Inspiratory Time PEEP Pressure Support Pressure Control EPAP IPAP BiPAP BUN Creatinine Est GFR ( Amer) Est GFR (Non-Af Amer) POC Glucose (mg/dL) 238 H 176 H C-Reactive Protein Vancomycin Trough 21.6 03/20/20 03/20/20 14:12 14:56 Patient Temperature Not Reportable ABG pH 7.41 ABG pH (Temp Correct) Not Reportable ABG pCO2 42 ABG pCO2 (Temp Corrct Not Reportable ABG pO2 72 L ABG pO2 (Temp Correct Not Reportable ABG HCO3 26.2 ABG O2 Saturation 96.5 ABG Base Excess 1.7 Respiration Rate Not Reportable O2 Delivery Device bipap Ventilator Type Not Reportable Vent Mode Not Reportable FiO2 100 Inspiratory Time Not Reportable PEEP Not Reportable Pressure Support Not Reportable Pressure Control Not Reportable EPAP 8 IPAP 16 BiPAP Not Reportable BUN 54 H Creatinine 2.15 H Est GFR ( Amer) 35.8 Est GFR (Non-Af Amer) 29.6 POC Glucose (mg/dL) C-Reactive Protein 170.35 H Vancomycin Trough Plan: Attending physican attestation: Pt was seen and examined at bedside along with resident Dr Kathie Sharp. Plan of care was discussed. Pt is 84 y o m with h/o heart transplant who failed outpatient treatment of CAP admitted with worsening SOB and is being treated for acute hypoxic resp failure , CAP, possible fungal PNA. Acute hypoxic respiratory failure 2/2 pneumonia CKD, stage 3 H/o heart transplant on immunosuppression DM type 2 H/o HIT Pt continued to deteriorate on BiPAP, rpt ABG showed pO2 of 72 while on 100% FiO2 and on continuous BiPAP. Pt reproted tiring out and requested to remain comfortable. Pts and daughter Yina were contacted over phone, pts condition was updated. Pts arrived at bedside. Pt and his discussed at bedside and requested BiPAP be removed and comfort measures to be initiated. Pt`s signed DNR/DNI, comfort care Pt was initiated on Morphine, BiPAP mask was removed. Pt was found to be comfortable Critical Care Time: 30 minutes exclusive of teaching/procedures
[2020-01-07 14:50] LABS: C Reactive Protein 170.35 mg/L (<8.01); EGFR African American 35.8 (>60); EGFR Non-African American 29.6 (>60)
[2020-01-07] MEDS: Vancomycin(*) 500 MG in NS 0.9% 250 ML* 250 ML IVPB SCH ×3 (15:20)
[2020-01-07] MEDS ORDERED: Morphine INJ* 4 MG/ML 1 ML SYRINGE (NEW SYRINGE VERSION) IV PRN (17:48)
[2020-01-07] MEDS ORDERED: Morphine INJ* 4 MG/ML 1 ML SYRINGE (NEW SYRINGE VERSION) ONE (17:52)
[2020-01-07] MEDS ORDERED: Morphine INJ* 4 MG/ML 1 ML SYRINGE (NEW SYRINGE VERSION) IV ONE (18:15)
[2020-01-07] MEDS: Fondaparinux* 2.5 MG/0.5 ML SYRINGE SUBCUT SCH (18:20)
[2020-01-07] MEDS: Atorvastatin* 10 MG TAB PO SCH (18:20)
[2020-01-07] MEDS: Anidulafungin* 100 MG in NS 0.9% 100 ML* 100 ML IVPB SCH (18:20)
[2020-01-07] MEDS: Tacrolimus CAP(*) 0.5 MG PO SCH (18:21)
[2020-01-07] MEDS ORDERED: Cefepime 1 GM in Dextrose(*) 1 GM/50 ML BAG IV SCH (18:30)
[2020-01-07] MEDS: Morphine INJ* 4 MG/ML 1 ML SYRINGE (NEW SYRINGE VERSION) IV PRN ×3 (19:08→20:17)
[2020-01-07 19:37] VITALS: BP 159/75
[2020-01-07] MEDS ORDERED: Morphine PCA ADULT* 5 MG/ML 30 ML PCA SCH (21:00)
--- NOTE | 2020-01-07 21:09 | PN ---
Progress Note - Progress Note Date of Service: 01/07/20 Note: Arrived to produce pt's . Pt was found without spontaneous respirations with no heart beat on ascultation. Pupils fixed and dilated, unresponsive to all stimuli. TOD 20:28 on 01/07/20. Family was present by the bedside at the time of . no autopsy requested.
--- NOTE | 2020-01-07 22:04 | DS ---
CC: Dr. Orestes Farrell; Dr. Hunt; Dr. Mendez; Dr. Gupta; Dr. Byrd; Angela Gonzalez NP * DISCHARGE/ SUMMARY: DATE OF ADMISSION: 12/30/19 DATE OF : 01/07/20 TIME OF : 8:28 p.m. PRIMARY CARE PROVIDER: Dr. Orestes Farrell. CAUSE OF : 1. Acute hypoxemic respiratory failure due to pneumonia, likely bacterial. 2. Severe sepsis secondary to above. 3. History of heart transplant, on Prograf and CellCept, in immunocompromised state. 4. Chronic kidney disease, stage 3. 5. Right arm superficial vein thrombosis. CONSULTATIONS DURING THE HOSPITAL STAY: Included Dr. Byrd and Angela Gonzalez NP from Infectious Diseases. 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 HOSPITALIZATION COURSE: Hany Webb was an 84-year-old male with a history of heart transplant as well HIT and chronic kidney disease stage 3, who presented to the hospital complaining of symptoms of pneumonia that he was diagnosed several days prior and treated as outpatient with antibiotics but despite that he continued to deteriorate. At admission, he was hypoxemic, placed on broad spectrum antibiotics. Despite continuation of broad-spectrum antibiotics throughout his hospital stay and infectious disease consultation, continued to deteriorate. He was on high flow nasal cannula intermittently alternating with BiPAP. Once again, throughout his entire hospital stay, he did not improve and continued to worsen with hypoxemia. On 01/07/20, the intensive care attending discussed with the patient that he continues to deteriorate and decision was made at this point for the patient to be made comfort care, in fact the patient requested that himself. The patient was placed on morphine as needed for comfort. His oxygen supplementation was discontinued as per the patient's request and he shortly after. His was present during that time. No autopsy was requested. Please note that from microbiology data throughout the patient's hospital stay, his blood cultures obtained at admission were negative. His sputum culture grew Bree glabrata and normal antonio. Nasal swab was negative for MRSA. Strep pneumo antigen and legionella antigen in the urine were negative. Respiratory sputum culture was also Bree glabrata. Please note this is a short summary of the patient's long and complicated hospitalization. Please refer to further medical records for details. TIME SPENT: Approximately 35 minutes was spent on the patient's discharge. [id number]/[facility] #: [id number] YAZ
== END 2020-01-07 20:55 | disposition expired | DRG 871 ==
LOC: ED 12:58 → ICU 16:14
PROVIDERS: ADMIT Internal Medicine; ATTEND Internal Medicine
PROC: 5A09457 Assistance with Respiratory Ventilation, 24-96 Consecutive Hours, Continuous Positive Airway Pressure (ICD-10-PCS; principal; 2020-01-02)
DX: A41.9 Sepsis, unspecified organism (principal); J96.01 Acute respiratory failure with hypoxia; J15.9 Unspecified bacterial pneumonia; Z94.1 Heart transplant status; I13.0 Hypertensive heart and chronic kidney disease with heart failure and stage 1 through stage 4 chronic kidney disease, or unspecified chronic kidney disease; I82.611 Acute embolism and thrombosis of superficial veins of right upper extremity; B37.89 Other sites of candidiasis; N18.3 Chronic kidney disease, stage 3 (moderate); R65.20 Severe sepsis without septic shock; E11.22 Type 2 diabetes mellitus with diabetic chronic kidney disease; I50.9 Heart failure, unspecified; I25.10 Atherosclerotic heart disease of native coronary artery without angina pectoris; E78.5 Hyperlipidemia, unspecified; Z96.652 Presence of left artificial knee joint; E78.00 Pure hypercholesterolemia, unspecified; E27.9 Disorder of adrenal gland, unspecified; I45.10 Unspecified right bundle-branch block; R35.0 Frequency of micturition; R39.15 Urgency of urination; Z51.5 Encounter for palliative care; Z86.73 Personal history of transient ischemic attack (TIA), and cerebral infarction without residual deficits; Z91.041 Radiographic dye allergy status; Z88.8 Allergy status to other drugs, medicaments and biological substances; I25.2 Old myocardial infarction; Z95.1 Presence of aortocoronary bypass graft; Z86.718 Personal history of other venous thrombosis and embolism; Z87.891 Personal history of nicotine dependence
CPT/HCPCS: 36415; 36600; 71045; 71250; 80048; 80053; 80202; 81003; 81015; 82565; 82803; 83605; 83735; 84484; 84520; 85025; 85610; 85730; 86140; 87040; 87070; 87077; 87086; 87102; 87106; 87205; 87641; 87798; 87899; 93005; 93306; 94660; 99285; A9270-GY; J0348; J0456; J0692; J0696; J1940; J2060; J2270; J2543; J3370; J7507